=== PATIENT | male | born 1980 | race Caucasian/White ===

== ENCOUNTER 2017-10-23 10:19 | Emergency (ER) | payer MEDICARE ==
[2017-10-23 11:26] LABS: APPEARANCE CLEAR (CLEAR); COLOR YELLOW (YELLOW); GLUCOSE NEGATIVE (NEGATIVE); KETONE NEGATIVE (NEGATIVE); NITRITE NEGATIVE (NEGATIVE); PROTEIN 2+ mg/dL (NEGATIVE)
[2017-10-23 11:27] LABS: BILIRUBIN NEGATIVE (NEGATIVE)
[2017-10-23 11:28] LABS: BACTERIA MODERATE /hpf (NONE SEEN); EPITHELIAL CELLS 0-5 /hpf (0-5); MUCUS >1+ /lpf (NONE SEEN); RED CELLS - URINE 0-5 /hpf (0-5); WHITE CELLS - URINE 0-5 /hpf (0-5)
== END 2017-10-23 12:25 | disposition home or self-care (01) ==
LOC: D.ER 10:19
PROVIDERS: Nurse Practitioner Family
DX: R11.10 Vomiting, unspecified (principal); R19.7 Diarrhea, unspecified; N39.0 Urinary tract infection, site not specified; I10 Essential (primary) hypertension

== ENCOUNTER 2019-03-02 15:20 | Inpatient (IN) | payer MEDICARE ==
[~2019-03-02] VITALS: Ht 190.5 cm; Wt 71.8 kg
[2019-03-02] MEDS ORDERED: SEROQUEL100 MG PO (15:31)
[2019-03-02] MEDS ORDERED: KLONOPIN1 MG PO (15:32)
[2019-03-02] MEDS ORDERED: LISINOPRIL40 MG PO (15:32)
[2019-03-02] MEDS ORDERED: BUPROPION XL300 MG PO (15:32)
[2019-03-02] MEDS ORDERED: CELEXA40 MG PO (15:32)
[2019-03-02] MEDS ORDERED: NORVASC10 MG PO (15:33)
[2019-03-02 16:09] LABS: BASOPHILS 0.2 % (0-2); HEMATOCRIT 39.6 % (42.0-54.0); HEMOGLOBIN 13.1 g/dL (13.5-17.5); IMMATURE GRANULOCYTES 0.2 % (0-5); LYMPHOCYTES 16.7 % (15-50); MCH 29.8 pg (26.0-34.0); MCHC 33.1 g/dL (31.0-37.0); MEAN PLATELET VOLUME 10.3 fL (7.4-10.4); MONOCYTES 9.8 % (2-11); NEUTROPHILS 72.1 % (40-80); PLATELET COUNT 169 10x3/uL (130-400); RDW 15.5 % (11.5-14.5); WBC 5.8 10x3/uL (4.8-10.8)
[2019-03-02 16:16] LABS: APTT 31.9 SECONDS (22.8-39.4); INR 1.35 (0.85-1.17); PROTIME 16.1 SECONDS (11.6-15.0)
[2019-03-02 16:22] LABS: ALBUMIN 3.4 g/dL (3.4-5.0); ALKALINE PHOSPHATASE 117 U/L (46-116); ALT (SGPT) 42 U/L (10-68); BILIRUBIN - TOTAL 1.63 mg/dL (0.2-1.3); CALC OSMOLALITY 281 mosm/kg (275-300); CALCIUM 8.4 mg/dL (8.5-10.1); CARBON DIOXIDE 31.5 mmol/L (21.0-32.0); CHLORIDE - SERUM 104 mmol/L (98-107); GLUCOSE 100 mg/dL (74-106); POTASSIUM - SERUM 3.1 mmol/L (3.5-5.1); PROTEIN - SERUM 6.8 g/dL (6.4-8.2); SODIUM 142 mmol/L (136-145); UREA NITROGEN 11 mg/dL (7-18); eGFR NON AFRICAN AMERICAN 88 mL/min (90-120)
[2019-03-02 16:33] LABS: AMYLASE - SERUM 54 U/L (25-115); CKMB 1.4 U/L (0.0-3.6); CREATINE KINASE 95 UL (21-232); LIPASE 97 U/L (73-393); MAGNESIUM - SERUM 1.9 mg/dL (1.8-2.4); TROPONIN-I 0.032 ng/mL (0.000-0.060)
--- NOTE | 2019-03-02 18:27 | NUR ---
PATIENT ACTUAL WEIGHT IS 277LBS.
--- NOTE | 2019-03-02 19:08 | NUR ---
CALLED REPORT TO [facility]. ADVISED THAT ROOM IS READY FOR PATIENT WHEN WE CAN GET HIM TRANSPORTED.
--- NOTE | 2019-03-02 19:29 | NUR ---
PATIENT ARRIVED TO UNIT VIA STRETCHER. PATIENT IS ALERT AND ORIENTED. DOBUTAMINE DRIP INFUSING. RESPIRATIONS ARE EVEN AND UNLABORED NO S/S OF DISTRESS. NO C/O PAIN. CALL LIGHT WITHIN REACH. WILL CPOC.
[2019-03-02 20:00] VITALS: BP 163/90
[2019-03-02 20:01] VITALS: BP 163/90; Ht 190.5 cm; Wt 71.8 kg
[2019-03-03 04:00] VITALS: BP 164/88
--- NOTE | 2019-03-03 07:15 | NUR ---
RECIEVED PT IN BED AAOX4 RESP UNLABORED SKIN W/D COLOR WNL DENIES ANY NEEDS OR DISCOMFORT AT THIS TIME NAD NOTED
[2019-03-03 07:17] LABS: BASOPHILS 0.3 % (0-2); EOSINOPHILS 0.8 % (0-7); HEMATOCRIT 39.6 % (42.0-54.0); HEMOGLOBIN 13.1 g/dL (13.5-17.5); IMMATURE GRANULOCYTES 0.2 % (0-5); LYMPHOCYTES 13.7 % (15-50); MCH 29.8 pg (26.0-34.0); MCHC 33.1 g/dL (31.0-37.0); MCV 90.2 fL (80.0-100.0); MEAN PLATELET VOLUME 10.2 fL (7.4-10.4); MONOCYTES 13.8 % (2-11); NEUTROPHILS 71.2 % (40-80); PLATELET COUNT 166 10x3/uL (130-400); RBC 4.39 10x6/uL (4.20-6.10); RDW 15.8 % (11.5-14.5); WBC 6.4 10x3/uL (4.8-10.8)
[2019-03-03 07:32] LABS: ALBUMIN 3.4 g/dL (3.4-5.0); ALKALINE PHOSPHATASE 101 U/L (46-116); ALT (SGPT) 36 U/L (10-68); BILIRUBIN - TOTAL 2.31 mg/dL (0.2-1.3); CALC OSMOLALITY 285 mosm/kg (275-300); CALCIUM 8.6 mg/dL (8.5-10.1); CHLORIDE - SERUM 105 mmol/L (98-107); CKMB 1.5 U/L (0.0-3.6); CREATINE KINASE 86 UL (21-232); GLUCOSE 98 mg/dL (74-106); POTASSIUM - SERUM 3.1 mmol/L (3.5-5.1); PRO BNP 3108 pg/mL (0-125); PROTEIN - SERUM 6.5 g/dL (6.4-8.2); SODIUM 144 mmol/L (136-145); TROPONIN-I 0.058 ng/mL (0.000-0.060); UREA NITROGEN 9 mg/dL (7-18); eGFR NON AFRICAN AMERICAN 88 mL/min (90-120)
[2019-03-03 08:09] VITALS: BP 168/79
[2019-03-03 12:09] VITALS: BP 150/75
--- NOTE | 2019-03-03 13:38 | NUR ---
pt up ad kavya REFUSES SCDs
[2019-03-03 16:34] VITALS: BP 128/71
--- NOTE | 2019-03-03 19:35 | NUR ---
RESUMING PATIENT CARE. PT ALERT AND ORIENTED. TALKING ON CELL PHONE. RESPIRATIONS EVEN AND UNLABORED. REMAINS ON ROOM AIR. DOBUTAMINE DRIP DC PER ORDER. NO S/S OF DISTRESS NO C/O OF PAIN. CALL LIGHT IN REACH. WILL CPOC.
[2019-03-03 20:00] VITALS: BP 124/56
[2019-03-03 23:30] VITALS: BP 128/92
[2019-03-04 04:00] VITALS: BP 125/93
[2019-03-04 08:31] VITALS: BP 127/86
[2019-03-04] MEDS ORDERED: COREG12.5 MG PO (09:00)
--- NOTE | 2019-03-04 09:53 | NUR ---
IV AND TELEMETRY DCD. DC PLANS GIVEN. UNDERSTANDING VOICED.
--- NOTE | 2019-03-04 10:00 | EC ---
PATIENT:JOAN THEODORE DATE OF SERVICE: 03/02/19 SEX: M MEDICAL RECORD: [id number] DATE OF : [birth year] LOCATION:D.M2 D.211 AGE OF PATIENT: 38 ADMISSION DATE: 03/02/19 REFERRING PHYSICIAN: INTERPRETING PHYSICIAN: TOMAS BECK MD ECHOCARDIOGRAM REPORT ECHO CHARGES 4 ECHO COMPLETE Date: 03/03/19 CLINICAL DIAGNOSIS: CHF ECHOCARDIOGRAPHIC MEASUREMENTS (adult normal given) AC root (d.<3.7cm) 2.6 cm LV Septum d (<1.2 cm> 1.7 cm Valve Excursion 2.2 cm LV Septum (systole) 2.3 cm Left Atria (s.<4.0cm> 5.3 cm LVPW d(<1.2cm) 1.2 cm RV (d.<2.3cm) 2.7 cm LVPW (sytole) 1.7 cm LV diastole(<5.6CM) 3.8 cm MV E-F(>70mm/sec) cm LV systole 2.3 cm LVOT Diameter 1.9 cm MV exc.(>10mm) cm Est.ejection fraction (50-75%) % DOPPLER: LVIT cm/sec A 35 cm/sec E 87 cm/sec LA cm/sec RVSP 18.8 mmHg LVOT 144 cm/sec AOP1/2T m/s Asc. Ao 156 cm/sec RVOT 97 cm/sec RA cm/sec PA 113 cm/sec AV Gradient Peak 9.7 mmHg AV Mean 4.8 mmHg AV Area 3.1 cm MV Gradient Peak 4.3 mmHg MV Mean 1.7 mmHg MV Area cm COMMENTS: Tool And Die Supervisor: Bre [facility] Tariff Publishing Agent: 1 Dr. Beck TAPE# PACS Pericardial Effusion Y DATE OF SERVICE: FINDINGS: 1. Left ventricular chamber size is within normal limits. Left ventricular systolic function is normal. Overall ejection fraction is estimated at 55%. 2. Left atrium, right atrium, and right ventricular chamber sizes are dilated. Left atrium measures 5.3 cm. 3. Valvular structures have normal structure and motion. 4. Doppler interrogation reveals mild mitral regurgitation. No other valvular insufficiency or stenosis. ECHOCARDIOGRAM REPORT [id number] JOAN THEODORE 5. Left ventricular hypertrophy is present and concentric with no evidence of outflow tract hypertrophy. 6. There is a moderate pericardial effusion present. No evidence of right atrial or right ventricular collapse. TRANSINT:[id number] Voice Confirmation ID: [id number] DOCUMENT ID: [id number] TOMAS BECK MD at 1000 CC: [id number] DICTATION DATE: 03/03/19 1129 [facility] ADMINISTRATOR: 03/03/[address] [facility] [address] [id number]
--- NOTE | 2019-03-04 10:00 | HP ---
PATIENT: JOAN THEODORE MEDICAL RECORD: [id number] ACCOUNT: [id number] LOCATION:[address] : [birth year] ADMISSION DATE: 03/02/19 PCP: MILAGROS PHAM MD HISTORY AND PHYSICAL EXAMINATION ADMITTING DIAGNOSES: 1. Congestive heart failure, chronic systolic dysfunction. 2. Cardiomyopathy, nonischemic. 3. Hypertension. HISTORY OF PRESENT ILLNESS: Mr. Theodore presents with shortness of breath, fluid overload, and class III heart failure symptomatology. He does have a history of a nonischemic cardiomyopathy diagnosed approximately 5 years ago. CURRENT MEDICATIONS: Include lisinopril, amlodipine. He is not on a beta-puneet. PHYSICAL EXAMINATION: GENERAL APPEARANCE: Well-nourished, well-developed, appears stated age. Level of distress, comfortable. PSYCHIATRIC: Mental status, alert, normal affect. Orientation, oriented to time, place and person. EYES: Lids and conjunctiva, noninjected. No discharge, no pallor. ENT: Lips, teeth, gums, normal dentition. Oropharynx, no cyanosis, no pallor. NECK: Carotid arteries, bilateral normal upstroke, no bruits, no thrills. JUGULAR VEINS: No jugular venous pressure or distention. CERVICAL LYMPH NODES: Nontender, nonenlarged. THYROID: Not enlarged. Nontender. No nodules. LUNGS: Respiratory effort, unlabored. CHEST: Normal curvature. No thoracic deformity. No chest wall tenderness. Percussion, resonant. Auscultation, clear. No wheezes, no rales, no rhonchi. CARDIOVASCULAR: Precordial exam, nondisplaced. No heaves or pericardial thrills. Rate and rhythm, regular. Heart sounds, normal S1, normal S2. No S3, no gallop, no rub. Systolic murmur, not heard. Diastolic murmur, not heard. EXTREMITIES: No cyanosis, no edema. Peripheral pulses, full and equal in all extremities, except as noted. No bruits appreciated. ABDOMEN: Soft, nondistended. Normal aorta. No bruit. Nontender. No masses. Liver, nontender, no hepatomegaly. Spleen, nontender, no splenomegaly. MUSCULOSKELETAL: No joint tenderness. No joint swelling. No erythema. NEUROLOGICAL: Normal gait, normal strength, normal tone. SKIN: Warm and dry. OVERALL IMPRESSION: Congestive heart failure at this time, he is on dobutamine and Lasix. We will add Coreg to his medical regimen. He has had a good diuresis. His breathing is still not back to baseline. We will continue these until the breathing is at baseline and he has a complete diuresis and clearing of his heart failure symptomatology. TRANSINT:[id number] Voice Confirmation ID: [id number] DOCUMENT ID: [id number] HISTORY AND PHYSICAL [id number] JOAN THEODORE JEFFREY MD at 1000 CC: [id number] DICTATION DATE: 03/03/19904 CIGARETTE PACKER: 03/03/19 0954 ADM IN [id number] [place] [address]
--- NOTE | 2019-03-04 10:26 | NUR ---
ESCORTED TO CAR BY W/C.
--- NOTE | 2019-03-04 11:31 | MORECARE ---
CASE MANAGEMENT DISCHARGE SUMMARY PATIENT: JOAN THEODORE UNIT: [id number] ADM DATE: 03/02/19 AGE: 38 : [birth year] SEX: M ROOM/BED: D.2114 AUTHOR: NAKUL,DOC PHYSICIAN: REFERRING PHYSICIAN: TOMAS HORTA MD DATE OF SERVICE: 03/04/19 Discharge Plan Patient Name: JOAN THEODORE Facility: [facility]:[place] : 1980 Planned Disposition: Home Anticipated Discharge Date: 03/04/19 Discharge Date: 03/04/2019 Expected LOS: 2 Initial Reviewer: [email or web address] Initial Review Date: 03/04/2019 Generated: 03/04/19 12:30 pm Comments DCP- Discharge Planning Updated by [email or web address]: Binh Murrieta on 03/04/19 10:[address] Patient Name: JOAN THEODORE Admission Status: ER Accout number: [id number] Admission Date: 03-02-2019 : 1980 Admission Diagnosis: Attending: SHREE HORTA Current LOS: 2 Anticipated DC Date: 03-04-2019 Planned Disposition: Home Primary Insurance: MEDICARE A & B Discharge Planning Comments: CM MET WITH PT IN ROOM TO DISCUSS DISCHARGE PLANNING AND NEEDS. PT REPORTS LIVING AT HOME INDEPENDENTLY AND ALONE. PT HAS NO MEDICAL EQUIPMENT AND NO OUTSIDE SERVICES ASSISTING IN THE HOME. CM DISCUSSED AVAILABILITY OF HOME HEALTH, REHAB SERVICES AND MEDICAL EQUIPMENT. PT DENIES DISCHARGE NEEDS, REPORTS HE IS DRIVING SELF HOME AT DISCHARGE TODAY. LICENSE DISTRIBUTOR NURSE NOTIFIED. Hand Coke Drawer: Binh Murrieta DCPIA - Discharge Planning Initial Assessment Updated by [email or web address]: Binh Murrieta on 03/04/19 11:26 am * Is the patient Alert and Oriented? Yes * How many steps to enter\exit or inside your home? 15 * PCP DR. PHAM * Pharm[facility] * Preadmission Environment Home Alone * ADLs Independent * Equipment None * Other Equipment [facility] - MEDICAL EQUIPMENT PROVIDER * List name and contact numbers for known caregivers / representatives who currently or will assist patient after discharge: BHAVINMOI, MICHAELT, * Verbal permission to speak to the caregivers and representatives has been obtained from the patient. N/A * Community resources currently utilized None * Please name any agencies selected above. NONE * Additional services required to return to the preadmission environment? No * Can the patient safely return to the preadmission environment? Yes * Has this patient been hospitalized within the prior 30 days at any hospital? No Patient Name: JOAN THEODORE Page [id number] at 1131 All edits/amendments must be made on the electronic document DICTATION DATE: 03/04/191129 SIDER MECHANIC: JESSICA 03/04/19 1130 RPT#: [id number] DC DATE:03/04/19 STATUS: DIS IN [facility] [address] [place] [address] END OF REPORT
== END 2019-03-04 10:27 | disposition home or self-care (01) | DRG 293 ==
LOC: D.ER 15:20 → D.M2 18:53
PROVIDERS: Family Medicine; ADMIT Internal Medicine Interventional Cardiology; ATTEND Internal Medicine Interventional Cardiology
DX: I11.0 Hypertensive heart disease with heart failure (principal); I50.22 Chronic systolic (congestive) heart failure; I42.9 Cardiomyopathy, unspecified

== ENCOUNTER 2019-06-06 18:47 | Inpatient (IN) | payer MEDICARE ==
[~2019-06-06] VITALS: Ht 190.5 cm; Wt 122.7 kg
--- NOTE | ~2019-06-06 | HEMODYNAMI ---
PATIENT:JOAN THEODORE MEDICAL RECORD: [id number] : [birth year] [facility] ADMISSION DATE: 06/06/19 Generatedon:06/08/201911:21 Patient name: JOAN THEODORE Patient #: [id number] SSN: [id number] : 1980 Date of study: 06/08/2019 Page: Of Hemodynamic Procedure Report Patient Data Patient Demographics Procedure consent was obtained First Name: JOAN Gender: Male Last Name: ARBEN : 1980 Middle Initial: MARAH Age: 39 year(s) Patient #: [id number] Race: SSN: [id number] Additional ID: [id number] Contact details Address: [address] [place] [address] State: [place] City: [facility] Zip code: [address] Past Medical History Allergies Allergen Reaction Date Comments Reported Other allergy 06/08/2019 asprin/penicillins Admission Admission Data Admission Date: 06/06/2019 Admission Time: 20:43 Room #: D.2120 Procedure Procedure Types Cath Procedure Diagnostic Procedure [facility] w/Coronaries Sedation Charges Moderate Sedation up to 15 minutes Procedure Description Procedure Date Procedure Date: 06/08/2019 Procedure Start Time: 11:05 Procedure End Time: 11:16 Procedure Staff Name Function Wilner Beck MD Performing Physician Elli Rehman RT Monitor Lisbeth Isaac RT Monitor Omar Rowan RN Nurse Aubree Cota RT Scrub Indication Unstable angina Procedure Data Cath Procedure Fluoroscopy Diagnostic fluoroscopy Total fluoroscopy Time: 2.3 time: 2.3 min min Diagnostic fluoroscopy Total fluoroscopy dose: dose: 1193 mGy 1193 mGy Contrast Material Contrast Material Type Amount (ml) Isovue 300 77 Entry Location Entry Primary Successful Side Size Upsize Upsize Entry Closure Plascencia ccessful Closure Location (Fr) 1 (Fr) 2 (Fr) Remarks Device Remarks Radial Right 6 Fr Mechanical artery Short Compression Estimated blood loss: 5 ml Diagnostic catheters Device Type Used For End Catheter Placement DIAGNOSTIC Dierks 110cm 5 Multi-vessel Fr catheter ([id number]) Angiography DIAGNOSTIC AR2 MOD 5 Fr Right Coronary catheter ([id number]) Angiography Procedure Complications No complications Procedure Medications Medication Administration Route Dosage 0.9% NaCl I.V. 100 ml/hr Oxygen etCO2 Nasal cannula 2 l/min Heparin Flush Bag added to field 2 bags (1000units/500ml NS) Lidocaine 2% added to field 20 Radial Cocktail added to field 1 syringe (Verapamil 2mg/Nitro 400mcg/Heparin 1500units) Versed I.V. 2 mg Fentanyl I.V. 100 mcg Radial Cocktail I.A. 1 syringe (Verapamil 2mg/Nitro 400mcg/Heparin 1500units) Hemodynamics Rest Heart Rate: 61 (bpm) Pressure Samples Time Site Value (mmHg) Purpose Heart Use Rate(bpm) 11:07 LV 28/-16,-8 Snapshot 93 11:07 LV 50/14,14 Snapshot 76 Snapshots Pre Cath Intra NCS Post Cath Vital Signs Time Heart Resp SPO2 etCO2 NIBP (mmHg) Rhythm Pain Sedation Rate (ipm) (%) (mmHg) Status Level (bpm) 11:02:36 63 19 99 34.6 128/98(105) NSR 0 (11) 10(A) , No pain 11:07:17 63 18 97 36.1 119/87(114) NSR 0 (11) 10(A) , No pain 11:11:22 60 17 92 43.6 121/82(100) NSR 0 (11) 9(A) , No pain 11:15:28 60 11 94 43.7 114/85(97) NSR 0 (11) 9(A) , No pain Medications Time Medication Route Dose Verified Delivered Reason Notes Effectiveness by by 11:00:43 0.9% NaCl I.V. 100 Omar Omar Per ml/hr Harpal Rowan physician RN RN 11:00:54 Oxygen etCO2 2 l/min Omar Omar for low 02 Nasal Harpal Rowan sats cannula RN RN 11:01:08 Heparin Flush added 2 bags Omar Omar used for Bag to Harpal oRwan procedure (1000units/500ml field RN RN NS) 11:01:19 Lidocaine 2% added 20ml Omar Omar for local to vial Lorigan Lorigan anesthetic field RN RN 11:01:30 Radial Cocktail added 1 Omar Omar used for (Verapamil to syringe Harpal Rowan procedure 2mg/Nitro field RN RN 400mcg/Heparin 1500units) 11:05:19 Versed I.V. 2 mg Omar Omar for sedation Harpal Rowan RN, RN 11:05:27 Fentanyl I.V. 100 mcg Omar Nelson for sedation Harpal Rowan RN RN 11:07:25 Radial Cocktail I.A. 1 Omar Darby for (Verapamil syringe Harpal Beck MD vasodilation 2mg/Nitro RN 400mcg/Heparin 1500units) Procedure Log Time Note 10:45:46 Elli Rehman RT(R) sent for patient. Start room use. 10:56:36 Informed consent obtained and on chart 10:59:35 Diagnostic Cath Status : Urgent 11:00:30 Indication : Unstable angina 11:00:43 0.9% NaCl 100 ml/hr I.V. was administered by Omar Rowan RN; Per physician; Verbal order read back and verified. 11:00:54 Oxygen 2 l/min etCO2 Nasal cannula was administered by Omar Rowan RN; for low 02 sats; Verbal order read back and verified. 11:01:08 Heparin Flush Bag (1000units/500ml NS) 2 bags added to field was administered by Omar Rowan RN; used for procedure; Verbal order read back and verified. 11:01:10 Time tracking: Regular hours (M-F 7:00 - 5:00) 11:01:18 Plan of Care:Hemodynamics will remain stable., Cardiac rhythm will remain stable., Comfort level will be maintained., Respiratory function will remain adequate., Patient/ family verbilizes understanding of procedure., Procedure tolerated without complication., Recovers from procedure without complications.. 11:01:19 Lidocaine 2% 20ml vial added to field was administered by Omar Rowan RN; for local anesthetic; Verbal order read back and verified. 11:01:26 Patient received from Med II to [facility] 2 Alert and oriented. Tansferred to table in Supine position. 11:01:29 Warm blankets applied, and bishop hugger turned on for patient comfort. 11:01:30 Radial Cocktail (Verapamil 2mg/Nitro 400mcg/Heparin 1500units) 1 syringe added to field was administered by Omar Rowan RN; used for procedure; Verbal order read back and verified. 11:01:30 Correct patient and procedure confirmed by team. 11:01:31 ECG and BP/O2 sat monitors applied to patient. 11:01:32 Vital chart was started 11:01:37 Baseline sample Acquired. 11:01:41 Full Disclosure recording started 11:01:46 Rhythm: sinus rhythm 11:01:58 H&P Date Dictated: 06/08/2019 New H&P dictated by physician.. 11:02:00 Pre-procedure instructions explained to patient. 11:02:02 Pre-op teaching completed and patient verbalized understanding. 11:02:10 Family unavailable. 11:02:14 Patient NPO since Midnight. 11:02:59 Patient allergic to Other allergyasprin/penicillins 11:03:06 Is the patient allergic to Iodine/contrast media? No. 11:03:09 Was the patient premedicated? No 11:03:25 Is patient on blood thinner?Yes 11:03:43 Preloaded on plavix 11:03:52 Patient diabetic? No. 11:03:56 ----Pre-sedation anethsthesia assessment.---- 11:04:01 Previous problem with sedation/anesthesia? No ? 11:04:04 Snore? No 11:04:06 Sleep apnea? No 11:04:08 Deviated septum? No 11:04:10 Opens mouth fully? Yes 11:04:12 Sticks out tongue? Yes 11:04:16 Airway obstruction? No ? 11:04:22 Dentures? No ? 11:04:34 Pre procedure: right dorsailis pedis pulse 2+ Normal; easily identifiable; not easily obliterated 11:04:36 Pre procedure: left dorsailis pedis pulse 2+ Normal; easily identifiable; not easily obliterated 11:04:41 IV patent on arrival in left forearm with 0.9% NaCl at O. 11:04:43 Lab results completed and on chart. 11:04:46 Right Radial & Right Groin area was prepped with chlora-prep and draped in sterile fashion 11:04:47 Alarms reviewed by R. N. 11:04:47 Sharps counted by scrub and verified by R.N. 11:04:49 Physician arrived 11:04:49 --------ALL STOP TIME OUT------ 11:04:50 Final Timeout: patient, procedure, and site verified with staff and physician. All members of the team are in agreement. 11:04:52 Right Radial & Right Groin site verified by team. 11:04:55 Fire Safety Assessment: A--An alcohol-based skin anteseptic being used preoperatively., C--Open oxygen or nitrous oxide is being used., D--An ESU, laser, or fiber-optic light is being used. 11:04:58 Physical assessment completed. ASA score P 2 - A patient with mild systemic disease as per Wilner Beck MD. 11:05:04 Sedation plan: IV Moderate Sedation Medication:Versed, Fentanyl 11:05:14 2) 60-89 Mildly reduced kidney function, and other findings (as for stage 1) point to kidney disease. 11:05:19 Versed 2 mg I.V. was administered by Omar Rowan RN; for sedation; Verbal order read back and verified. 11:05:27 Fentanyl 100 mcg I.V. was administered by Omar Rowan RN; for sedation; Verbal order read back and verified. 11:05:31 Maximum allowable contrast dose (3.7 X eGFR X 0.75)166 ml. 11:05:35 Use device set Radial Dx or PCI 11:05:36 ACIST Syringe (71028) opened to sterile field. 11:05:36 Medline Cath Pack ([id number]) opened to sterile field. 11:05:36 Bag Decanter () opened to sterile field. 11:05:37 ACIST Hand Control (17092) opened to sterile field. 11:05:37 ACIST Manifold (32102) opened to sterile field. 11:05:38 Tegaderm 4 x 4 (1626W) opened to sterile field. 11:05:38 MBrace Wrist Support ([id number]) opened to sterile field. 11:05:39 EMERALD Guide Wire (836-959) opened to sterile field. 11:05:40 SHEATH 6FR RAIN (4647014) opened to sterile field. 11:05:43 Procedure started. 11:05:47 Local anesthetic to right radial artery with Lidocaine 2% by Wilner Beck MD.INITIAL ACCESS ONLY 11:06:01 A 6 Fr Short sheath was inserted into the Right Radial artery 11:06:18 A DIAGNOSTIC Dierks 110cm 5 Fr catheter (205816) was advanced over the wire and used for Multi-vessel Angiography. 11:06:57 Zero performed for pressure channel P1 11:07:25 Radial Cocktail (Verapamil 2mg/Nitro 400mcg/Heparin 1500units) 1 syringe I.A. was administered by Wilner Beck MD; for vasodilation; Verbal order read back and verified. 11:07:47 LV hemodynamics recorded. 11:07:50 LV gram done using GORDON 11:07:58 Injector settings: Ml/sec: 5, Volume: 15, 11:08:10 EF : 50 % 11:08:16 LCA angiography performed. 11:10:58 Catheter removed. 11:11:19 A DIAGNOSTIC AR2 MOD 5 Fr catheter ([id number]) was advanced over the wire and used for Right Coronary Angiography. 11:12:43 RCA angiography performed. 11:12:48 Catheter removed. 11:12:50 ACCDominant side:Right 11:13:06 ZEPHYR REGULAR TR BAND (362936) opened to sterile field. 11:13:40 Sheath removed intact; hemostasis achieved with Mechanical Compression to the Right Radial artery. 11:13:44 Procedure ended.(Physican Out) 11:14:01 Fluoroscopy time 02.30 minutes. 11:14:09 Flurop Dose total: 1193 11:14:09 Fluoroscopy dose: 1193 mGy 11:14:14 Dose Area Product 71783 mGy/cm. 11:14:21 Contrast amount:Isovue 300 77ml. 11:14:33 Sharps counted by scrub and verified by R.N. 11:14:40 [place] band inflated with 10cc of air. 11:14:42 Insertion/operative site no bleeding no hematoma. 11:14:52 Post right radial artery:stable 11:14:57 Post Procedure Pulses reassessed and unchanged 11:15:06 Post procedure rhythm: unchanged. 11:15:13 Estimated blood loss: 5 ml 11:15:18 Post procedure instruction explained to patient.Patient verbalizes understanding. 11:15:18 Patient needs reinforcement of post procedure teaching. 11:15:57 Procedure type changed to Cath procedure, Diagnostic procedure, LHC, LHC w/Coronaries, Sedation Charges, Moderate Sedation up to 15 minutes 11:16:01 Procedure and supply charges have been captured, reviewed, submitted and are correct. 11:16:14 Procedure Complication : No complications 11:16:33 Vital chart was stopped 11:16:34 See physician's report for complete and final results. 11:16:44 Report given to Pre/Post Procedure Room. 11:16:53 Patient transfered to Pre/Post Procedure Room with Bed. 11:16:57 Procedure ended. 11:16:57 Full Disclosure recording stopped 11:17:08 End room use (Document Last) Device Usage Item Name Manufacture Quantity Catalog Hospital Part Current Minima l Lot# / Number Charge Number Stock Stock Serial# Code ACIST Acist 1 46558 [id number] 360970 [id number] 20 Syringe Medical (94330) Systems Inc Medline Medline 1 [id number] 899725 37432 505431 5 Cath Pack ([id number]) Bag Microtek 1 2001S 964890 48465 841309 5 Decanter Medical Inc. () ACIST Hand Acist 1 26315 514042 087369 060809 5 Control Medical (69299) Systems Inc ACIST Acist 1 56636 567790 148812 725785 5 Manifold Medical (41266) Systems Inc Tegaderm 4 3M 1 1626W 478268 207657 594034 5 x 4 (1626W) MBrace Advanced 1 140-0250-00 884650 99905 869816 5 Wrist Vascular Support Dynamics ([id number]) EMERALD Cardinal 1 502-455 798671 576853 361961 5 Guide Wire Health (502-455) SHEATH 6FR Cardinal 1 4359725 902152 3073846 935525 5 [facility] (8608209) DIAGNOSTIC Terumo 1 40-5013 723962 640271 671453 5 Dierks 110cm 5 Fr catheter (044458) DIAGNOSTIC Cardinal 1 952147M 093551 408925 075408 20 AR2 MOD 5 Health Fr catheter (870442O) ZEPHYR Cardinal 1 912518 651464 2061362 559846 5 REGULAR TR Health BAND (040017) Signature Audit Blanchard Stage Time Signature Unsigned Intra-Procedure 06/08/2019 Lisbeth 11:20:27 AM Poncho RT(R) (CV) Intra-Procedure 06/08/2019 Omar 11:21:05 AM Harpal FAROOQ Intra-Procedure 06/08/2019 Wilner Beck 11:21:51 AM [facility] [address] [place] [address]
[~2019-06-06 18:47] MED LIST: BUPROPION XL300 MG PO; CELEXA40 MG PO; COREG12.5 MG PO; KLONOPIN1 MG PO; LISINOPRIL40 MG PO; NORVASC10 MG PO; SEROQUEL100 MG PO
[2019-06-06] MEDS ORDERED: KLOR-CON 1010 MEQ (19:09)
[2019-06-06 19:30] VITALS: BP 132/98
[2019-06-06 19:53] LABS: BASOPHILS 0.2 % (0-2); EOSINOPHILS 0.2 % (0-7); HEMATOCRIT 40.2 % (42.0-54.0); HEMOGLOBIN 13.2 g/dL (13.5-17.5); IMMATURE GRANULOCYTES 0.1 % (0-5); LYMPHOCYTES 11.4 % (15-50); MCH 28.1 pg (26.0-34.0); MCHC 32.8 g/dL (31.0-37.0); MCV 85.7 fL (80.0-100.0); MEAN PLATELET VOLUME 10.2 fL (7.4-10.4); MONOCYTES 11.7 % (2-11); NEUTROPHILS 76.4 % (40-80); PLATELET COUNT 176 10x3/uL (130-400); RBC 4.69 10x6/uL (4.20-6.10); WBC 9.6 10x3/uL (4.8-10.8)
[2019-06-06 19:57] LABS: APTT 32.3 SECONDS (22.8-39.4); INR 1.41 (0.85-1.17); PROTIME 16.6 SECONDS (11.6-15.0)
[2019-06-06 20:00] VITALS: BP 149/101
[2019-06-06 20:03] LABS: ALBUMIN 3.8 g/dL (3.4-5.0); ALKALINE PHOSPHATASE 113 U/L (46-116); ALT (SGPT) 31 U/L (10-68); BILIRUBIN - TOTAL 2.07 mg/dL (0.2-1.3); CALC OSMOLALITY 285 mosm/kg (275-300); CALCIUM 8.9 mg/dL (8.5-10.1); CARBON DIOXIDE 28.3 mmol/L (21.0-32.0); CHLORIDE - SERUM 105 mmol/L (98-107); CREATININE - SERUM 1.4 mg/dL (0.6-1.3); GLUCOSE 100 mg/dL (74-106); POTASSIUM - SERUM 3.4 mmol/L (3.5-5.1); SODIUM 143 mmol/L (136-145); UREA NITROGEN 16 mg/dL (7-18); eGFR NON AFRICAN AMERICAN 60 mL/min (90-120)
[2019-06-06 20:18] LABS: CKMB 2.9 U/L (0.0-3.6); CREATINE KINASE 133 UL (21-232); MAGNESIUM - SERUM 1.7 mg/dL (1.8-2.4)
[2019-06-06 20:19] LABS: TROPONIN-I 0.165 ng/mL (0.000-0.060)
[2019-06-06 20:30] VITALS: BP 156/97
[2019-06-06 21:00] VITALS: BP 159/107
--- NOTE | 2019-06-06 21:45 | NUR ---
PT RECEIVED FROM ER, A&OX4, 20G.-LAC-NS @50, 2L-02, TELEMTRY-90SR, PROVIDED A SANDWICH AND DRINK, WILL KEEP NPO AFTER MIDNIGHT, DENIES ANY NEEDS AT THIS TIME, BED IS LOW, SRX2, CALL LIGHT IN REACH, WILL CONTINUE PLAN OF CARE
[2019-06-07] VITALS (7 sets, daily range): BP systolic 128–167; BP diastolic 86–107; Ht 190.5 cm; Wt 122.7 kg
[2019-06-07 05:52] LABS: BASOPHILS 0.3 % (0-2); EOSINOPHILS 1.4 % (0-7); HEMOGLOBIN 12.5 g/dL (13.5-17.5); IMMATURE GRANULOCYTES 0.2 % (0-5); LYMPHOCYTES 26.8 % (15-50); MCH 27.5 pg (26.0-34.0); MCHC 31.3 g/dL (31.0-37.0); MEAN PLATELET VOLUME 10.5 fL (7.4-10.4); MONOCYTES 13.4 % (2-11); NEUTROPHILS 57.9 % (40-80); PLATELET COUNT 180 10x3/uL (130-400); RBC 4.55 10x6/uL (4.20-6.10); RDW 15.3 % (11.5-14.5)
[2019-06-07 05:55] LABS: WBC 6.4 10x3/uL (4.8-10.8)
[2019-06-07 05:56] LABS: MCV 87.9 fL (80.0-100.0)
[2019-06-07 06:07] LABS: ANION GAP 11.4 mmol/L (8-16); CALCIUM 8.7 mg/dL (8.5-10.1); CREATININE - SERUM 1.2 mg/dL (0.6-1.3); POTASSIUM - SERUM 3.4 mmol/L (3.5-5.1)
--- NOTE | 2019-06-07 11:45 | NUR ---
TELEMETRY SR. DR HORTA AT BS. WILL CONT. TO MONITOR NEEDS.
--- NOTE | 2019-06-07 12:58 | NUR ---
CONSENTS SIGNED FOR [facility]. WILL CONT. PLAN OF CARE.
--- NOTE | 2019-06-07 19:00 | NUR ---
RECEIVED REPORT, WILL ASSUME CARE OF PT, SLEEPING NO DISTRESS NOTICED, BED IS LOW, SRX2, CALL LIGHT IN REACH, WILL CONTINUE PLAN OF CARE
[2019-06-08] VITALS: BP 101/64
[2019-06-08 04:00] VITALS: BP 128/90
--- NOTE | 2019-06-08 05:55 | NUR ---
I have reviewed this patient and I concur with the Shift Assessment completed by the Licensed Practical Nurse today this shift.
--- NOTE | 2019-06-08 07:11 | NUR ---
AWAKE AND ALERT. DENIES ANY NEEDS. TELEMERTY SHOWS SB 58. 02 AT 2 L/M PER NC. LEFT AC IV. NPO FOR CATH. WILL MONITOR. SR UP WITH CALL LIGHT IN REACH
[2019-06-08 08:02] VITALS: BP 141/98
--- NOTE | 2019-06-08 11:29 | HP ---
PATIENT: JOAN THEODORE MEDICAL RECORD: [id number] ACCOUNT: [id number] LOCATION:[address] : 78 ADMISSION DATE: 06/06/19 PCP: MILAGROS PHAM MD HISTORY AND PHYSICAL EXAMINATION DIAGNOSES: 1. Non-Q-wave myocardial infarction. 2. Angina. 3. Cardiomyopathy. 4. Abnormal ECG. 5. Hypertension. HISTORY OF PRESENT ILLNESS: Mr. Theodore presents with severe chest pain and increased troponin. His chest pain came on him when he was at work. He usually does not get chest pain. He was diagnosed with a nonischemic cardiomyopathy 6-7 years ago. He had cardiac catheterization at that time with no significant disease. He has not been restudied since. He is not having any chest pain now. His EKG suggests lateral ischemia. PHYSICAL EXAMINATION: CONSTITUTIONAL/GENERAL APPEARANCE: Well nourished, well developed, appears stated age. EYES: Lids and conjunctivae noninjected. No discharge. No pallor. ENT: Lips within normal limit. No cyanosis. No pallor. NECK: Carotid arteries, bilateral normal upstroke. No bruits. No thrills. No jugular venous pressure or distention. CERVICAL LYMPH NODES: Nontender. Nonenlarged. THYROID: Not enlarged. No nodules. CARDIOVASCULAR: Precordial exam, nondisplaced. No heaves or pericardial thrills. Rate and rhythm, regular. Heart sounds, normal S1, normal S2. No S3, no gallop, no rub. Systolic murmur, not heard. Diastolic murmur, not heard. RESPIRATORY: Respiratory effort, unlabored. Normal curvature. No thoracic deformity. No chest wall tenderness. Percussion, resonant. Auscultation, clear. No wheezes, no rales, no rhonchi. ABDOMEN: Soft, nondistended, nontender. No abdominal pain, no vomiting and normal appetite. MUSCULOSKELETAL: No joint tenderness, normal gait, normal tone. SKIN: Warm and dry. OVERALL IMPRESSION: Non-Q-wave myocardial infarction with new-onset chest pain and abnormal ECG. You know, he had a negative cardiac catheterization 6-7 years ago. With his change in status, change in symptomatology, EKG abnormalities, and elevated troponin, we will proceed with coronary angiography in the a.m. Further care depends upon findings of the angiography. TRANSINT:[id number] Voice Confirmation ID: [id number] DOCUMENT ID: [id number] HISTORY AND PHYSICAL [id number] JOAN THEODORE JEFFREY MD at 1129 CC: [id number] DICTATION DATE: 06/07/19 1152 CANDY ATTENDANT: 06/07/19 1212 ADM IN [facility] [address] [id number]
--- NOTE | 2019-06-08 11:30 | NUR ---
PT ARRIVED BY STRETCHER. PLACED ON MONITOR. ASSESSMENT COMPLETED. CALL LIGHT WITHIN REACH. NO FAMILY WITH PT AT THIS TIME.
--- NOTE | 2019-06-08 11:45 | NUR ---
PT RESTING COMFORTABLY. RIGHT RADIAL Z BAND IN PLACE. NO BLEEDING/HEMATOMA NOTED.
--- NOTE | 2019-06-08 12:17 | NUR ---
PT RESTING COMFORTABLY. VSS. RIGHT RADIAL Z BAND IN PLACE. NO BLEEDING/HEMATOMA NOTED. CALL LIGHT WITHIN REACH.
--- NOTE | 2019-06-08 12:45 | NUR ---
4cc OF AIR REMOVED FROM Z BAND. TOLERATED WELL. PT STILL SLEEPY, BUT HEAD OF BED INC TO 45 DEGREES AND PT SET UP WITH SANDWICH TRAY AND DRRINK. NO BLEEDING NOTED TO RIGHT WRIST AT THIS TIME. CALL LIGHT WITHIN REACH. DENIES NAUSEA/PAIN.
--- NOTE | 2019-06-08 13:00 | NUR ---
4cc OF AIR REMOVED FROM Z BAND. TOLERATED WELL. NO BLEEDING/HEMATOMA NOTED. CALL LIGHT WITHIN REACH.
--- NOTE | 2019-06-08 13:20 | NUR ---
4cc OF AIR REMOVED FROM Z BAND. TOLERATED WELL. NO BLEEDING/HEMATOMA NOTED. CALL LIGHT WITHIN REACH. PT HAS NO RIDE HOME AT THIS TIME. HE IS CALLING AROUND AND SEEING IF SOMEONE CAN PICK HIM UP.
--- NOTE | 2019-06-08 14:00 | NUR ---
Z BAND REMOVED AND DRESSING APPLIED. NO BLEEDING/HEMATOMA NOTED. CALL LIGHT WITHIN REACH. VSS. NO NEEDS AT THIS TIME.
--- NOTE | 2019-06-08 14:12 | NUR ---
PT FOUND RIDE HOME. PIV D/C'D WITH CATH TIP INTACT. RIGHT WRIST DRESSING C/D/I. NO S/S OF HEMATOMA NOTED. PT INSTRUCTED TO GET UP AND DRESSED.
--- NOTE | 2019-06-08 14:15 | NUR ---
DISCUSSED DISCHARGE INSTRUCTIONS WITH PT. HE VOICED UNDERSTANDING. WILL FOLLOW UP WITH DR. GODOY OFFICE IN 3 WEEKS. APPT DATE AND TIME GIVEN AND CARD GIVEN WITH OFFICE NUMBER AND ADDRESS.
--- NOTE | 2019-06-08 14:30 | NUR ---
PT AMBULATED TO RESTROOM. VOIDED WITHOUT DIFFICULTY.
--- NOTE | 2019-06-08 14:34 | OP ---
PATIENT NAME: JOAN THEODORE MEDICAL RECORD: [id number] :78 LOCATION:[address] [address] ADMISSION DATE:06/06/19 SURGEON: TOMAS HORTA MD DATE OF OPERATION: 06/08/2019 PROCEDURES: 1. Left heart catheterization. 2. Selective coronary angiography. 3. Left ventriculogram. INDICATION: Non-Q-wave myocardial infarction. DESCRIPTION OF PROCEDURE: After informed consent was obtained and after detailed explanation of risks, benefits as well as alternative therapies, the patient elected to proceed with angiogram and heart catheterization. FINDINGS: Left ventriculogram was performed in standard 30-degree GORDON view, reveals preserved cardiac wall motion, ejection fraction 55% to 60%. SELECTIVE CORONARY ANGIOGRAPHY: 1. Left main is with no significant angiographic disease. 2. Left anterior descending has no significant disease, but there is very prominent systolic bridging throughout the entire [id number] LAD. 3. Left circumflex has no significant angiographic disease. 4. Right coronary has no significant angiographic disease. 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 No fixed obstructive disease and preserved left ventricular function. TRANSINT:[id number] Voice Confirmation ID: [id number] DOCUMENT ID: [id number] TOMAS HORTA MD at 1434 CC: [id number] DICTATION DATE: 06/08/19 1134 SAP SOLUTION MANAGER CONSULTANT: 06/08/19 1303 ADM IN [facility] [address] [place] [address]
--- NOTE | 2019-06-08 14:34 | EC ---
PATIENT:JOAN THEODORE DATE OF SERVICE: 06/06/19 SEX: M MEDICAL RECORD: [id number] DATE OF : 78 [facility] AGE OF PATIENT: 39 ADMISSION DATE: 06/06/19 REFERRING PHYSICIAN: INTERPRETING PHYSICIAN: TOMAS BECK MD ECHOCARDIOGRAM REPORT ECHO CHARGES 4 ECHO COMPLETE Date: 06/07/19 CLINICAL DIAGNOSIS: TN, SOB ECHOCARDIOGRAPHIC MEASUREMENTS (adult normal given) AC root (d.<3.7cm) 2.7 cm LV Septum d (<1.2 cm> 1.9 cm Valve Excursion 2.1 cm LV Septum (systole) 2.0 cm Left Atria (s.<4.0cm> 4.3 cm LVPW d(<1.2cm) 1.6 cm RV (d.<2.3cm) 2.7 cm LVPW (sytole) 2.2 cm LV diastole(<5.6CM) 4.7 cm MV E-F(>70mm/sec) cm LV systole 3.4 cm LVOT Diameter 1.9 cm MV exc.(>10mm) cm Est.ejection fraction (50-75%) % DOPPLER: LVIT cm/sec A 45 cm/sec E 60 cm/sec LA cm/sec RVSP 31.7 mmHg LVOT 129 cm/sec AOP1/2T m/s Asc. Ao 132 cm/sec RVOT 51 cm/sec RA cm/sec PA 72 cm/sec AV Gradient Peak 7.0 mmHg AV Mean 4.2 mmHg AV Area 2.9 cm MV Gradient Peak 2.9 mmHg MV Mean 1.2 mmHg MV Area cm COMMENTS: Player Piano Technician: Bre [facility] Line Assembly Utility Worker: 1 Dr. Beck TAPE# PACS Pericardial Effusion Y DATE OF SERVICE: PROCEDURE: Echocardiogram. FINDINGS: 1. Left ventricular chamber size is within normal limits. Left ventricular systolic function is normal at 55%. 2. Left atrium is enlarged at 4.3 cm. Right atrium and right ventricular chamber sizes are as well gfui-hq-adfbsopbsv dilated. 3. Valvular structures have normal structure and motion. ECHOCARDIOGRAM REPORT [id number] JOAN THEODORE 4. Doppler interrogation reveals trace mitral regurgitation, mild tricuspid regurgitation, no other valvular insufficiency or stenosis. Pulmonary systolic pressure is estimated at 32 mmHg. 5. Moderate pericardial effusion is present. This is impinging on the RA and RV nuñez, but there is no collapse or overt sign of tamponade at this point. TRANSINT:[id number] Voice Confirmation ID: [id number] DOCUMENT ID: [id number] TOMAS BECK MD at 1434 CC: [id number] DICTATION DATE: 06/08/19 1019 OCCUPATIONAL PHYSICIAN: 06/08/19 1135 ADM IN [place] [id number] [place] [id number]
--- NOTE | 2019-06-08 14:38 | NUR ---
PT TAKEN DOWN TO VEHICLE BY WHEELCHAIR. NO S/S OF DISTRESS NOTED. ALL BELONGINGS AND PAPERWORK IN HAND.
--- NOTE | 2019-06-26 13:28 | DS ---
PATIENT:JOAN THEODORE :78 MEDICAL RECORD: [id number] DISCHARGE SUMMARY ADMISSION DATE: 06/06/19 DISCHARGE DATE: 06/08/19 DIAGNOSES: 1. Non-Q-wave myocardial infarction. 2. Myocardial bridging LAD. HOSPITAL COURSE: This is a gentleman, who presented with chest pain and mildly elevated troponin. Cardiac catheterization revealed no fixed obstructive coronary artery disease, but there was a significant myocardial bridging of the LAD. Discharged home with the addition of Lopressor to his medical regimen. Follow up with [facility] in 1 month. TRANSINT:[id number] Voice Confirmation ID: [id number] DOCUMENT ID: [id number] TOMAS HORTA MD at 1328 CC: [id number] DICTATION DATE: 06/23/19 1054 SEWER PIPE LAYER HELPER: 06/24/19 0044 DIS IN 06/08/19 [id number] [place] [address]
== END 2019-06-08 14:38 | disposition home or self-care (01) | DRG 281 ==
LOC: D.ER 18:47 → D.M2 20:43 → D.CLR 06-08 11:34
PROVIDERS: Family Medicine; ADMIT Internal Medicine Interventional Cardiology; ATTEND Internal Medicine Interventional Cardiology
PROC: B2151ZZ Fluoroscopy of Left Heart using Low Osmolar Contrast (ICD-10-PCS; 2019-06-08)
PROC: 4A023N7 Measurement of Cardiac Sampling and Pressure, Left Heart, Percutaneous Approach (ICD-10-PCS; 2019-06-08)
PROC: B2111ZZ Fluoroscopy of Multiple Coronary Arteries using Low Osmolar Contrast (ICD-10-PCS; principal; 2019-06-08 10:15)
DX: I21.4 Non-ST elevation (NSTEMI) myocardial infarction (principal); Q24.5 Malformation of coronary vessels; I42.9 Cardiomyopathy, unspecified; R94.30 Abnormal result of cardiovascular function study, unspecified; I11.0 Hypertensive heart disease with heart failure; I50.9 Heart failure, unspecified; Z87.891 Personal history of nicotine dependence

== ENCOUNTER → 2019-06-22 12:56 | Outpatient (CLI) | payer MEDICARE ==
[2019-06-07 11:51] VITALS: BMI 33.6
[~2019-06-22 12:56] MED LIST changes: +KLOR-CON 1010 MEQ
--- NOTE | 2019-06-26 13:28 | EC ---
PATIENT:JOAN THEODORE DATE OF SERVICE: 06/22/19 SEX: M MEDICAL RECORD: [id number] DATE OF : 78 LOCATION:[facility] AGE OF PATIENT: 39 ADMISSION DATE: 06/22/19 REFERRING PHYSICIAN: INTERPRETING PHYSICIAN: TOMAS BECK MD ECHOCARDIOGRAM REPORT ECHO CHARGES 4 ECHO COMPLETE Date: 06/22/19 CLINICAL DIAGNOSIS: CHF/CARDIOMYOPATHY/HTN ECHOCARDIOGRAPHIC MEASUREMENTS (adult normal given) AC root (d.<3.7cm) 3.2 cm LV Septum d (<1.2 cm> 2.0 cm Valve Excursion 2.3 cm LV Septum (systole) 2.3 cm Left Atria (s.<4.0cm> 6.0 cm LVPW d(<1.2cm) 1.6 cm RV (d.<2.3cm) 2.3 cm LVPW (sytole) 2.2 cm LV diastole(<5.6CM) 4.6 cm MV E-F(>70mm/sec) cm LV systole 3.0 cm LVOT Diameter 2.0 cm MV exc.(>10mm) cm Est.ejection fraction (50-75%) % DOPPLER: LVIT cm/sec A 48.0 cm/sec E 61.0 cm/sec LA cm/sec RVSP 23.0 mmHg LVOT 124 cm/sec AOP1/2T m/s Asc. Ao 139 cm/sec RVOT 60.0 cm/sec RA cm/sec PA 78.0 cm/sec AV Gradient Peak 7.8 mmHg AV Mean 4.4 mmHg AV Area 2.3 cm MV Gradient Peak 3.1 mmHg MV Mean 1.0 mmHg MV Area cm COMMENTS: OP - Finnish Rubber: Ashley WILLSOE Comsec Manager: 1 Dr. Beck TAPE# PACS Pericardial Effusion Y DATE OF SERVICE: 06/22/2019 FINDINGS: 1. Left ventricular chamber size is within normal limits. Left ventricular systolic function is normal. Overall ejection fraction estimated at 50%. 2. Left atrium is enlarged at 6.0 cm. Right atrium and right ventricular chamber sizes are as well moderately dilated. 3. Valvular structures have normal structure and motion. 4. Doppler interrogation reveals mild mitral regurgitation, mild tricuspid regurgitation, no other valvular insufficiency or stenosis. ECHOCARDIOGRAM REPORT [id number] JOAN THEODORE 5. Pericardial effusion is present. This is moderate. It is not hemodynamically significant. No evidence of left ventricular thrombus. TRANSINT:[id number] Voice Confirmation ID: [id number] DOCUMENT ID: [id number] TOMAS BECK MD at 1328 CC: [id number] DICTATION DATE: 06/22/19 1543 TABLE ASSEMBLER: 06/22/19 2230 DEP CLI 06/22/19 [id number] [place] [address]
== END | disposition home or self-care (01) ==
LOC: D.HCCECHO 12:56
PROVIDERS: ATTEND Internal Medicine Interventional Cardiology
DX: I42.9 Cardiomyopathy, unspecified (principal)

== ENCOUNTER 2019-08-23 20:53 | Inpatient (IN) | payer MEDICARE ==
[~2019-08-23] VITALS: Ht 190.5 cm; Wt 80.0 kg
[~2019-08-23 20:53] MED LIST changes: -KLOR-CON 1010 MEQ; +KLOR-CON 1010 MEQ PO
[2019-08-23] MEDS ORDERED: BUMETANIDE0.5 MG PO (21:04)
[2019-08-23 21:40] LABS: BASOPHILS 0.4 % (0-2); EOSINOPHILS 1.2 % (0-7); HEMATOCRIT 44.3 % (42.0-54.0); HEMOGLOBIN 14.3 g/dL (13.5-17.5); IMMATURE GRANULOCYTES 0.4 % (0-5); LYMPHOCYTES 24.6 % (15-50); MCHC 32.3 g/dL (31.0-37.0); MCV 86.7 fL (80.0-100.0); MEAN PLATELET VOLUME 10.1 fL (7.4-10.4); MONOCYTES 13.8 % (2-11); NEUTROPHILS 59.6 % (40-80); PLATELET COUNT 164 10x3/uL (130-400); RBC 5.11 10x6/uL (4.20-6.10); RDW 16.8 % (11.5-14.5); WBC 5.2 10x3/uL (4.8-10.8)
[2019-08-23 21:49] LABS: CALC OSMOLALITY 276 mosm/kg (275-300); CALCIUM 8.8 mg/dL (8.5-10.1); CARBON DIOXIDE 37.5 mmol/L (21.0-32.0); CHLORIDE - SERUM 98 mmol/L (98-107); CREATININE - SERUM 1.1 mg/dL (0.6-1.3); GLUCOSE 106 mg/dL (74-106); POTASSIUM - SERUM 3.5 mmol/L (3.5-5.1); SODIUM 138 mmol/L (136-145); UREA NITROGEN 16 mg/dL (7-18); eGFR NON AFRICAN AMERICAN 79 mL/min (90-120)
[2019-08-23 22:05] LABS: ALBUMIN 3.4 g/dL (3.4-5.0); ALKALINE PHOSPHATASE 114 U/L (46-116); ALT (SGPT) 46 U/L (10-68); BILIRUBIN - TOTAL 1.87 mg/dL (0.2-1.3); CKMB 3.3 U/L (0.0-3.6); CREATINE KINASE 460 UL (21-232); PRO BNP 2732 pg/mL (0-125); PROTEIN - SERUM 7.2 g/dL (6.4-8.2); TROPONIN-I 0.044 ng/mL (0.000-0.060)
[2019-08-23 22:10] LABS: APTT 34.1 SECONDS (22.8-39.4); INR 1.36 (0.85-1.17); PROTIME 16.3 SECONDS (11.6-15.0)
[2019-08-23 23:29] VITALS: BP 165/102
[2019-08-24 01:01] VITALS: BP 154/109; BMI 32.5
--- NOTE | 2019-08-24 01:44 | NUR ---
ADMIT TO ROOM 2116 FROM ER. ACCOMPANIED BY LORIE. ALERT/ORIENTED. ADMISSION ASSESSMENT AND HISTORY COMPLETED. HOME MEDS REVIEWED AND UPDATED. PLAN OF CARE INITIATED.
--- NOTE | 2019-08-24 04:15 | NUR ---
RESTING WITH NO DISTRESS. SR PER TELEMETRY. INSTRUCTED ON USE OF URINAL TO VOID TO MONITOR/COUNT OUTPUT. FIANCEE AT BEDSIDE.
[2019-08-24 06:01] LABS: BASOPHILS 0.4 % (0-2); EOSINOPHILS 1.1 % (0-7); HEMATOCRIT 44.3 % (42.0-54.0); HEMOGLOBIN 14.1 g/dL (13.5-17.5); IMMATURE GRANULOCYTES 0.2 % (0-5); LYMPHOCYTES 24.4 % (15-50); MCH 27.5 pg (26.0-34.0); MCHC 31.8 g/dL (31.0-37.0); MCV 86.5 fL (80.0-100.0); MEAN PLATELET VOLUME 9.9 fL (7.4-10.4); NEUTROPHILS 58.9 % (40-80); PLATELET COUNT 163 10x3/uL (130-400); RBC 5.12 10x6/uL (4.20-6.10); WBC 5.3 10x3/uL (4.8-10.8)
[2019-08-24 06:50] LABS: ALBUMIN 3.3 g/dL (3.4-5.0); ALKALINE PHOSPHATASE 107 U/L (46-116); ALT (SGPT) 36 U/L (10-68); BILIRUBIN - TOTAL 1.79 mg/dL (0.2-1.3); CALC OSMOLALITY 279 mosm/kg (275-300); CALCIUM 8.3 mg/dL (8.5-10.1); CHLORIDE - SERUM 100 mmol/L (98-107); CREATININE - SERUM 1.1 mg/dL (0.6-1.3); GLUCOSE 96 mg/dL (74-106); POTASSIUM - SERUM 3.3 mmol/L (3.5-5.1); PROTEIN - SERUM 6.6 g/dL (6.4-8.2); SODIUM 140 mmol/L (136-145); UREA NITROGEN 14 mg/dL (7-18); eGFR NON AFRICAN AMERICAN 79 mL/min (90-120)
[2019-08-24 08:02] VITALS: BP 137/97
--- NOTE | 2019-08-24 10:30 | NUR ---
URINE SPECIMEN COLLECTED AND TAKEN TO LAB. WILL MONITOR.
[2019-08-24 11:41] LABS: UDS - AMPHET NEGATIVE QUAL (NEGATIVE); UDS - BARB NEGATIVE QUAL (NEGATIVE); UDS - BENZO NEGATIVE QUAL (NEGATIVE); UDS - COCAINE NEGATIVE QUAL (NEGATIVE); UDS - OPIATE NEGATIVE QUAL (NEGATIVE); UDS - PCP NEGATIVE QUAL (NEGATIVE); UDS - THC NEGATIVE QUAL (NEGATIVE)
[2019-08-24 11:56] VITALS: BP 157/105
[2019-08-24 12:24] LABS: APPEARANCE CLEAR (CLEAR); BACTERIA FEW /hpf (NEGATIVE); BILIRUBIN NEGATIVE (NEGATIVE); COLOR DK YELLOW (YELLOW); EPITHELIAL CELLS OCC /hpf (0-5); GLUCOSE NEGATIVE (NEGATIVE); KETONE NEGATIVE (NEGATIVE); MUCUS <1+ /lpf (NONE SEEN); NITRITE NEGATIVE (NEGATIVE); PROTEIN TRACE mg/dL (NEGATIVE); RED CELLS - URINE NONE SEEN /hpf (0-5); SPERMATOZOA PRESENT /hpf (NONE SEEN); WHITE CELLS - URINE NSEEN /hpf (NEGATIVE)
[2019-08-24 14:45] VITALS: BMI 32.4
[2019-08-24 17:20] VITALS: BP 132/89
--- NOTE | 2019-08-24 19:58 | NUR ---
RECEIVED BEDSIDE REPORT. PATIENT IS ALERT AND ORIENTED, RESTING COMFORTABLY IN BED. RESPIRATIONS ARE EVEN AND UNLABORED. NO S/S OF DISTRESS. NO C/O PAIN. CALL LIGHT WITHIN REACH. WILL CPOC.
[2019-08-24 20:30] VITALS: BP 123/87
[2019-08-25 04:30] VITALS: BP 119/78
[2019-08-25 06:15] LABS: BASOPHILS 2.3 % (0-2); EOSINOPHILS 1.1 % (0-7); HEMATOCRIT 44.4 % (42.0-54.0); HEMOGLOBIN 13.9 g/dL (13.5-17.5); IMMATURE GRANULOCYTES 0.2 % (0-5); LYMPHOCYTES 29.6 % (15-50); MCH 27.5 pg (26.0-34.0); MCHC 31.3 g/dL (31.0-37.0); MCV 87.7 fL (80.0-100.0); MONOCYTES 11.6 % (2-11); NEUTROPHILS 55.2 % (40-80); PLATELET COUNT 192 10x3/uL (130-400); RBC 5.06 10x6/uL (4.20-6.10); RDW 17.1 % (11.5-14.5); WBC 6.1 10x3/uL (4.8-10.8)
[2019-08-25 06:39] LABS: CALCIUM 8.6 mg/dL (8.5-10.1); CARBON DIOXIDE 36.4 mmol/L (21.0-32.0); CREATININE - SERUM 1.3 mg/dL (0.6-1.3); POTASSIUM - SERUM 4.4 mmol/L (3.5-5.1)
--- NOTE | 2019-08-25 10:04 | NUR ---
UP OUT OF BED TO AMBULATE WITH PT ASSIST.
[2019-08-25 10:09] VITALS: BP 118/84
--- NOTE | 2019-08-25 13:07 | CN ---
PATIENT NAME:JOAN THEODORE MEDICAL RECORD: [id number] : 78 LOCATION:D. D.2116 ADMIT DATE: 08/23/19 ACCOUNT: [id number] CONSULTING PHYSICIAN: DENA URIAS MD REFERRING PHYSICIAN: ASHOK STRICKLAND MD DATE OF CONSULTATION: 08/24/2019 HISTORY OF PRESENT ILLNESS: A 39-year-old gentleman with a history of a non-ST elevation myocardial infarction approximately 1 month ago, who underwent diagnostic angiography, had a moderate pericardial effusion at that time. LV function itself was normal. The only thing, he had a mild myocardial bridge, admitted with dyspnea over the past 7-10 days. Thyroid functions have been normal. We are asked to see him concerning his cardiovascular status. PAST MEDICAL HISTORY: He has history of hypertension. ALLERGIES: PENICILLIN, ASPIRIN. MEDICATIONS: Include amlodipine 10 mg p.o. daily, carvedilol 12.5 b.i.d., lisinopril 40 every day, Wellbutrin 300 every day, Celexa 40 every day, Bumex 0.5 every day. SOCIAL HISTORY: Smokes less than a pack a day, nondrinker. No recreational drug use. No set exercise program. REVIEW OF SYSTEMS: The patient reports easy bruising but reports no swollen glands. The patient reports no fever, no night sweats, no significant weight gain, no significant weight loss. No significant exercise tolerance. The patient reports no dry eyes, no irritation, no vision change. Patient reports no difficulty hearing and no ear pain. Patient reports no frequent nose bleeds or nose and sinus problems. Patient reports on arm pain on exertion. No shortness of breath while lying down. No history of heart murmur. Patient reports no cough, no wheezing or coughing up blood. Patient reports no abdominal pain, no vomiting. Normal appetite. No diarrhea and not vomiting blood. No nausea and no constipation. Patient reports no incontinence. No difficulty urinating. No hematuria. No increased frequency. Patient reports no muscle aches. No weakness, no arthralgias, no back pain. No swelling of the extremities. Patient reports no abnormal mole, no jaundice, no rashes. Reports no loss of consciousness. No weakness and no numbness. No seizures, dizziness, or headaches. The patient reports no depression, no sleep disturbance, feeling safe in a relationship and no alcohol abuse. Patient reports on fatigue. Reports no runny nose or sinus pressure. No itching, no hives, and no frequent sneezing. PHYSICAL EXAMINATION: GENERAL: This is a pleasant gentleman, in no acute distress. NECK: No JVD or bruit. HEART: Regular, II/ systolic ejection murmur. LUNGS: Fair excursion. Few expiratory wheezes ABDOMEN: Soft, nontender. EXTREMITIES: Pulse 2+. No edema. DIAGNOSTIC DATA: EKG, no acute changes. IMPRESSION: We will check a 2D echocardiographic study to assess for CONSULT REPORT [id number] JOAN THEODORE pericardial effusion, he did have moderate before. Further recommendations based on clinical course. TRANSINT:[id number] Voice Confirmation ID: [id number] DOCUMENT ID: [id number] DENA URIAS MD at 1307 CC: [id number] DICTATION DATE: 08/24/19 0958 FILM OR TAPE LIBRARIAN: 08/24/19 1515 ADM IN [id number] [place] [address]
[2019-08-25 14:12] VITALS: BP 112/70
[2019-08-25 14:27] LABS: HEMATOCRIT 45.5 % (42.0-54.0); HEMOGLOBIN 14.5 g/dL (13.5-17.5); MCH 27.9 pg (26.0-34.0); MCHC 31.9 g/dL (31.0-37.0); MCV 87.5 fL (80.0-100.0); MEAN PLATELET VOLUME 10.1 fL (7.4-10.4); RBC 5.2 10x6/uL (4.20-6.10); WBC 7.2 10x3/uL (4.8-10.8)
[2019-08-25 14:47] LABS: ANION GAP 7.4 mmol/L (8-16); APTT 34.3 SECONDS (22.8-39.4); CALCIUM 8.2 mg/dL (8.5-10.1); CARBON DIOXIDE 34.7 mmol/L (21.0-32.0); CREATININE - SERUM 1.2 mg/dL (0.6-1.3); INR 1.2 (0.85-1.17); POTASSIUM - SERUM 4.1 mmol/L (3.5-5.1); PROTIME 14.7 SECONDS (11.6-15.0)
--- NOTE | 2019-08-25 14:53 | NUR ---
EKG COMPLETED ORDERED. HT AND WT ALONG WITH MED LIST PLACED ON FRONT OF CHART.
[2019-08-25 15:46] VITALS: Ht 190.5 cm; Wt 80.0 kg
[2019-08-25 19:00] VITALS: BP 123/86
[2019-08-25 20:00] VITALS: BP 124/60
[2019-08-26] VITALS (22 sets, daily range): BP systolic 102–130; BP diastolic 61–87
[2019-08-26 05:49] LABS: CALC OSMOLALITY 279 mosm/kg (275-300); CALCIUM 8.2 mg/dL (8.5-10.1); CARBON DIOXIDE 35.1 mmol/L (21.0-32.0); CHLORIDE - SERUM 100 mmol/L (98-107); CREATININE - SERUM 1.1 mg/dL (0.6-1.3); GLUCOSE 128 mg/dL (74-106); POTASSIUM - SERUM 4.2 mmol/L (3.5-5.1); SODIUM 137 mmol/L (136-145); eGFR NON AFRICAN AMERICAN 79 mL/min (90-120)
[2019-08-26 05:56] LABS: UREA NITROGEN 23 mg/dL (7-18)
[2019-08-26 06:12] LABS: BASOPHILS 0.5 % (0-2); EOSINOPHILS 0 % (0-7); HEMATOCRIT 44.8 % (42.0-54.0); IMMATURE GRANULOCYTES 0.2 % (0-5); LYMPHOCYTES 17.4 % (15-50); MCH 27.4 pg (26.0-34.0); MCHC 31.3 g/dL (31.0-37.0); MCV 87.7 fL (80.0-100.0); MEAN PLATELET VOLUME 9.9 fL (7.4-10.4); MONOCYTES 7.2 % (2-11); NEUTROPHILS 74.7 % (40-80); PLATELET COUNT 216 10x3/uL (130-400); RBC 5.11 10x6/uL (4.20-6.10); RDW 16.6 % (11.5-14.5); WBC 6.4 10x3/uL (4.8-10.8)
--- NOTE | 2019-08-26 08:54 | EC ---
PATIENT:JOAN THEODORE DATE OF SERVICE: 08/23/19 SEX: M MEDICAL RECORD: [id number] DATE OF : 78 LOCATION:D.M2 D.211 AGE OF PATIENT: 39 ADMISSION DATE: 08/23/19 REFERRING PHYSICIAN: INTERPRETING PHYSICIAN: DENA URIAS MD ECHOCARDIOGRAM REPORT ECHO CHARGES 5 ECHO LIMITED Date: 08/24/19 CLINICAL DIAGNOSIS: PERICARDIAL EFFUSION ECHOCARDIOGRAPHIC MEASUREMENTS (adult normal given) AC root (d.<3.7cm) 0 cm LV Septum d (<1.2 cm> 0 cm Valve Excursion 0 cm LV Septum (systole) 0 cm Left Atria (s.<4.0cm> 0 cm LVPW d(<1.2cm) 0 cm RV (d.<2.3cm) 0 cm LVPW (sytole) 0 cm LV diastole(<5.6CM) 0 cm MV E-F(>70mm/sec) 0 cm LV systole 0 cm LVOT Diameter 0 cm MV exc.(>10mm) 0 cm Est.ejection fraction (50-75%) % DOPPLER: LVIT 0 cm/sec A 0 cm/sec E 0 cm/sec LA 0 cm/sec RVSP 0 mmHg LVOT 0 cm/sec AOP1/2T 0 m/s Asc. Ao 0 cm/sec RVOT 0 cm/sec RA 0 cm/sec PA 0 cm/sec AV Gradient Peak 0 mmHg AV Mean 0 mmHg AV Area 0 cm MV Gradient Peak 0 mmHg MV Mean 0 mmHg MV Area 0 cm COMMENTS: LIMITED STUDY (2-D ONLY) Code Enforcement Officer: 1 JOSE WILLSOE Clip Bolter And Wrapper: 3 Dr. Vázquez TAPE# PACS Pericardial Effusion Y DATE OF SERVICE: Limited 2D Study For follow-up pericardial effusion. LV internal dimensions appear normal. LV appears to be globally hypo with impaired diastolic filling. There is adequate valve excursion in the aortic and mitral valve. This is concerning for a restrictive pericardial effusion. This is at least 3 cm posteriorly. TRANSINT:[id number] Voice Confirmation ID: [id number] DOCUMENT ID: [id number] ECHOCARDIOGRAM REPORT [id number] JOAN THEODORE DENA URIAS MD at 0854 CC: [id number] DICTATION DATE: 08/25/19 1308 LAUNCH [employer] POLICE: 08/25/19 1901 ADM IN [facility] [address] [place] [address]
--- NOTE | 2019-08-26 10:15 | NUR ---
PRE-OPS GIVEN. TO OR BY BED.
--- NOTE | 2019-08-26 13:46 | NUR ---
O2 SAT 100 ON 15L SIMPLE MASK. PT MORE AWAKE. 02 DECREASED TO 5L NC. WILL CONTINUE TO MONITOR.
--- NOTE | 2019-08-26 15:00 | NUR ---
PT APPEARS ASLEEP. AROUSES TO VOICE. O2 DECREASED TO 3L VIA NC. WILL CONTINUE TO MONITOR.
--- NOTE | 2019-08-26 15:45 | NUR ---
A-LINE DC'D AT THIS TIME PER DR. RANDALL.
--- NOTE | 2019-08-26 17:10 | NUR ---
ATE 100% OF DINNER TRAY. NO NAUSEA REPORTED. ADVANCED DIET TO REGULAR PER ORDER.
--- NOTE | 2019-08-26 17:50 | NUR ---
DR. RANDALL AT BEDSIDE. OKAY TO DC CATHETER.
--- NOTE | 2019-08-26 18:30 | NUR ---
MCL[place]IN CATHETER DC'D AT THIS TIME PER ORDERS.
--- NOTE | 2019-08-26 19:20 | NUR ---
REPORT RECEIVED, SHIFT ASSESSMENT COMPLETED PER FLOW SHEET, SEE FOR DETAILS. 2100 DENIES NEEDS AT THIS TIME, CALL LIGHT WITHIN REACH. WILL CONTINUE TO MONITOR. 2300 REASSESSMENT COMPLETED PER FLOW SHEET, SEE FOR DETAILS. 0100 RESTING IN BED, NO ACUTE DISTRESS NOTED, WILL CONTINUE TO MONITOR.
[2019-08-27] VITALS (27 sets, daily range): BP systolic 91–127; BP diastolic 52–82
[2019-08-27 07:08] LABS: BASOPHILS 0.1 % (0-2); EOSINOPHILS 0 % (0-7); HEMOGLOBIN 13.3 g/dL (13.5-17.5); IMMATURE GRANULOCYTES 0.2 % (0-5); LYMPHOCYTES 5.6 % (15-50); MCH 27.6 pg (26.0-34.0); MCHC 30.9 g/dL (31.0-37.0); MCV 89.2 fL (80.0-100.0); MEAN PLATELET VOLUME 10.3 fL (7.4-10.4); MONOCYTES 6.7 % (2-11); NEUTROPHILS 87.4 % (40-80); PLATELET COUNT 216 10x3/uL (130-400); RBC 4.82 10x6/uL (4.20-6.10)
[2019-08-27 07:09] LABS: WBC 13.1 10x3/uL (4.8-10.8)
[2019-08-27 07:16] LABS: ALBUMIN 3.1 g/dL (3.4-5.0); ANION GAP 8.1 mmol/L (8-16); BILIRUBIN - TOTAL 1.33 mg/dL (0.2-1.3); CALCIUM 8.2 mg/dL (8.5-10.1); CARBON DIOXIDE 34.4 mmol/L (21.0-32.0); CREATININE - SERUM 1.2 mg/dL (0.6-1.3); MAGNESIUM - SERUM 2.3 mg/dL (1.8-2.4); PHOSPHOROUS 4.6 mg/dL (2.5-4.9); POTASSIUM - SERUM 4.5 mmol/L (3.5-5.1); PROTEIN - SERUM 6.7 g/dL (6.4-8.2)
--- NOTE | 2019-08-27 09:04 | NUR ---
0700 PT RECIEVED IN BED ALERT AND ORIENTED VSS ON 2L NC, R IJ CVL DRESSING CDI, SUBSTERNAL DRESSING CDI WITH CT TO WATER SEAL SEROSANG DRAINAGE 0730 ASSISTED UP TO CHAIR ATE 75% BREAKFAST 0900 TOOK AM MEDS, MEDS REVIEWED WITH DR RANDALL AND PT
--- NOTE | 2019-08-27 09:58 | NUR ---
Nutrition Follow-up: Pericardial window yesterday. Eating breakfast at time of visit this AM. Reports good appetite/PO intake. Diet: Regular PO intake: 75-100% Wt: 271.1# Last BM: ~2 days ago per pt; reports this is normal Labs noted: Glu 140, Ca 8.2, Alb 3.1 Meds noted: Senokot -May consider cardiac diet. -RD following.
--- NOTE | 2019-08-27 10:47 | OP ---
PATIENT NAME: JOAN THEODORE MEDICAL RECORD: [id number] :78 LOCATION:D.CVI D.CV07 ADMISSION DATE:08/23/19 SURGEON: YORDAN RANDALL MD DATE OF OPERATION: 08/26/2019 SURGEON: Yordan Randall MD CHILD PROTECTIVE SERVICES SPECIALIST: None. PROCEDURE PERFORMED: Subxiphoid pericardial window. PREOPERATIVE DIAGNOSIS: Pericardial effusion. POSTOPERATIVE DIAGNOSIS: Pericardial effusion. ANESTHESIA: General endotracheal anesthesia. ESTIMATED BLOOD LOSS: Minimal. SPECIMENS: 1. Two 1 x 1 cm pericardial biopsies. 2. Pericardial fluid for AFB, fungal and routine cultures and stains as well as cytology and pathology. COMPLICATIONS: None. CONDITION: Stable. DISPOSITION: ICU. OPERATIVE FINDINGS: 1. Transesophageal echocardiography confirmed circumferential pericardial effusion, larger posteriorly and left ventricular hypertrophy. There was complete drainage after removal of the fluid. The blood pressure did not increase after drainage of fluid. 850 cc of serous fluid removed OPERATIVE INDICATION: Dyspnea and enlarging pericardial effusion. PROCEDURE IN DETAIL: The patient was brought to the operating suite where after lines were placed, the patient was prepped and then general anesthesia was obtained. The vertical incision of the xiphoid was made. A portion of the xiphoid was removed. Upward retraction of the left costal margin was performed and the inferior surface of the pericardium was identified. Aspiration was obtained. The pericardium was incised and fluid was removed for culture. Then, the pericardial window was created with 2 separate 1 x 1 cm biopsies. The edges were made hemostatic and the fluid was removed. A drain was placed through a separate stab wound and placed on the diaphragmatic surface of the pericardium and sutured into place. Marcaine was used for local anesthetic. The fascia was closed. Subcutaneous tissue was irrigated with antibiotic irrigation. Subcutaneous tissue was closed. Skin was closed. Dermabond was placed. The needle and sponge counts were reported as correct. The patient was taken to ICU in stable condition. TRANSINT:[id number] Voice Confirmation ID: [id number] DOCUMENT ID: [id number] OPERATIVE REPORT [id number] JOAN THEODORE YORDAN RANDALL MD at 1047 CC: MILAGROS PHAM MD and DENA URIAS MD [id number] DICTATION DATE: 08/26/19 1258 SENIOR SAFETY SUPPORT MANAGER: 08/26/19 1459 ADM IN [facility] [address] [facility] [place], [facility]
[2019-08-27 14:10] LABS: ACID FAST SMEAR Negative (()); AFB SPECIMEN PROCESSING Concentration (())
--- NOTE | 2019-08-27 15:33 | NUR ---
HR NOTED TO BE AFIB ON MONITOR, EKG DONE TO CONFIRM, EKG SHOWING AFIB, PAGED DR RANDALL WHO STATED TO CALL [facility], PAGED DR URIAS WHO RETURNED CALL WITH ORDERS FOR 20 LASIX X1
--- NOTE | 2019-08-27 16:32 | MORECARE ---
CASE MANAGEMENT DISCHARGE SUMMARY PATIENT: JOAN THEODORE UNIT: [id number] ADM DATE: 08/23/19 AGE: 39 : [birth year] SEX: M ROOM/BED: D.[facility] AUTHOR: QIAN MOTA PHYSICIAN: REFERRING PHYSICIAN: ASHOK STRICKLAND MD DATE OF SERVICE: 08/27/19 Discharge Plan Patient Name: JOAN THEODORE Facility[facility]:[place] : 1980 Planned Disposition: Home Anticipated Discharge Date: Discharge Date: Expected LOS: Initial Reviewer: [email or web address] Initial Review Date: 08/27/2019 Generated: 08/27/19 5:31 pm Patient Name: JOAN THEODORE Page [phone] at 1632 All edits/amendments must be made on the electronic document DICTATION DATE: 08/27/19 163 MANUFACTURING INDUSTRIAL ENGINEER: JESSICA 08/27/19 1631 RPT#: [id number] AL DATE: STATUS: ADM IN [facility] [address] [place] [address] END OF REPORT
--- NOTE | 2019-08-27 16:40 | MORECARE ---
CASE MANAGEMENT DISCHARGE SUMMARY PATIENT: JOAN THEODORE UNIT: [id number] ADM DATE: 08/23/19 AGE: 39 : [birth year] SEX: M ROOM/BED: D[facility] AUTHOR: NAKUL,DOC PHYSICIAN: REFERRING PHYSICIAN: ASHOK STRICKLAND MD DATE OF SERVICE: 08/27/19 Discharge Plan Patient Name: JOAN THEODORE Facility: [facility]:[place] : 1980 Planned Disposition: Home Anticipated Discharge Date: Discharge Date: Expected LOS: Initial Reviewer: [email or web address] Initial Review Date: 08/27/2019 Generated: 08/27/19 5:40 pm Comments DCP- Discharge Planning Updated by [email or web address]: Colette Bone on 08/27/19 3:[address] Patient Name: JOAN THEODORE Admission Status: ER Accout number: [id number] Admission Date: 08-23-2019 : 1980 Admission Diagnosis: Attending: ASHOK STRICKLAND Current LOS: 4 Anticipated DC Date: Planned Disposition: Home Primary Insurance: MEDICARE A & B Discharge Planning Comments: CM met with patient at bedside after explaining CM role and obtaining verbal consent. Patient lives at home with fianc? where he is independent with his care and plans to return there upon discharge. Patient feels this would be a safe discharge. CM discussed availability / needs of home health and medical equipment. Patient denies any discharge needs at this time. Patient states he will have his family drive him home upon discharge. Patient requested information on living will / advanced directive. CM gave patient pamphlet on advance directive. CM will continue to follow and assist as needed with discharge planning / needs. Drafter: Colette Bone DCPIA - Discharge Planning Initial Assessment Updated by [email or web address]: Colette Bone on 08/27/19 4:32 pm * Is the patient Alert and Oriented? Yes * How many steps to enter\exit or inside your home? 17 * PCP [facility] * [facility] * Preadmission Environment Home with Family * ADLs Independent * Equipment None * List name and contact numbers for known caregivers / representatives who currently or will assist patient after discharge: MEGHA GRANT - [phone] BHAVIN HERRERA - [phone] * Verbal permission to speak to the caregivers and representatives has been obtained from the patient. Yes * Community resources currently utilized None * Additional services required to return to the preadmission environment? No * Can the patient safely return to the preadmission environment? Yes * Has this patient been hospitalized within the prior 30 days at any hospital? No Last DP export: 08/27/19 3:32 Patient Name: JOAN THEODORE Page [phone] at 1640 All edits/amendments must be made on the electronic document DICTATION DATE: 08/27/19 1640 GAS UTILITY WORKER: JESSICA 08/27/19 1640 RPT#: [id number] DC DATE: STATUS: ADM IN [facility] [address] [place] [address] END OF REPORT
--- NOTE | 2019-08-27 17:01 | NUR ---
1100 REPOSITIONED IN CHAIR 1200 ATE 100% DINNER 1300 SEEN BY PT
--- NOTE | 2019-08-27 18:09 | NUR ---
ASSISTED PT FROM CHAIR UP TO BED, PT HR 30S NO P WAVES, JUNCTIONAL THEN NSR 70S, BP 112/63, PT DENIES ANY LIGHTHEADEDNESS ETC, DR BRYAN CALLED, NO NEW ORDERS
--- NOTE | 2019-08-27 19:00 | NUR ---
BEDSIDE REPORT AND SHIFT ASSESSMENT COMPLETE, SEE FLOWSHEET. PT SLEEPING, EASY TO AROUSE. SUBSTERNAL DRSNG CDI, CT TO WATERSEAL WITHOUT KINKS. O2 SAT 96 ON 2 L NC. R IJ DRESSING CDI, SALINE LOCKED. PT DENIES NEEDS AT THIS TIME. WILL MONITOR.
--- NOTE | 2019-08-27 21:00 | NUR ---
MEDS GIVEN PER NOV. PT REFUSED KLONOPIN. FAMILY AT BEDSIDE, UPDATE GIVEN. NO NEEDS AT THIS TIME. WILL MONITOR.
--- NOTE | 2019-08-27 23:00 | NUR ---
REASSESSMENT COMPLETE, SEE FLOWSHEET. VSS, NO SIGNS OF ACUTE DISTRESS NOTED. PT DENIES ANY NEEDS AT THIS TIME. CALL LIGHT IN REACH. WILL MONITOR.
[2019-08-28] VITALS (27 sets, daily range): BP systolic 92–122; BP diastolic 55–80
--- NOTE | 2019-08-28 01:00 | NUR ---
PT SLEEPING, VSS. CALL LIGHT IN REACH, WILL MONITOR.
--- NOTE | 2019-08-28 03:00 | NUR ---
REASSESSMENT COMPLETE, SEE FLOWSHEET. VSS, NO SIGNS OF ACUTE DISTRESS NOTED. PT SLEEPING, WILL MONITOR.
--- NOTE | 2019-08-28 05:00 | NUR ---
PT COUGHING UP YELLOW, THICK SPUTUM.
[2019-08-28 05:39] LABS: BASOPHILS 0 % (0-2); EOSINOPHILS 0 % (0-7); HEMATOCRIT 42.7 % (42.0-54.0); IMMATURE GRANULOCYTES 0.2 % (0-5); LYMPHOCYTES 5.4 % (15-50); MCH 27.4 pg (26.0-34.0); MCHC 30.4 g/dL (31.0-37.0); MCV 89.9 fL (80.0-100.0); MEAN PLATELET VOLUME 9.8 fL (7.4-10.4); MONOCYTES 8.2 % (2-11); NEUTROPHILS 86.2 % (40-80); PLATELET COUNT 215 10x3/uL (130-400); RBC 4.75 10x6/uL (4.20-6.10); RDW 16.9 % (11.5-14.5); WBC 10.3 10x3/uL (4.8-10.8)
[2019-08-28 06:00] LABS: ALBUMIN 2.9 g/dL (3.4-5.0); ANION GAP 4.8 mmol/L (8-16); BILIRUBIN - TOTAL 0.76 mg/dL (0.2-1.3); CARBON DIOXIDE 35.7 mmol/L (21.0-32.0); CREATININE - SERUM 1.3 mg/dL (0.6-1.3); POTASSIUM - SERUM 4.5 mmol/L (3.5-5.1); PROTEIN - SERUM 6.6 g/dL (6.4-8.2)
--- NOTE | 2019-08-28 06:00 | NUR ---
ASSISTED PT TO BEDSIDE CHAIR. =
[2019-08-28 10:10] LABS: FUNGUS STAIN Final report (())
[2019-08-28 11:10] LABS: ANA REFLEX - ANTICHROMATIN ABS 0.3 AI (0.0-0.9); ANA REFLEX - CENTROMERE B ABS <0.2 AI (0.0-0.9); ANA REFLEX - DBL STRANDED DNA <1 IU/mL (0-9); ANA REFLEX - DIRECT Positive (Negative); ANA REFLEX - JO-1 AB <0.2 AI (0.0-0.9); ANA REFLEX - RNP ANTIBODIES 1.1 AI (0.0-0.9); ANA REFLEX - SCL-70 <0.2 AI (0.0-0.9); ANA REFLEX - SJOGRENS AB SSA <0.2 AI (0.0-0.9); ANA REFLEX - SJOGRENS AB SSB <0.2 AI (0.0-0.9); ANA REFLEX - SMITH AB <0.2 AI (0.0-0.9)
--- NOTE | 2019-08-28 14:57 | NUR ---
Rehab Prescreening Consult recieved and the chart has been reviewed. He is a potential candidate for acute rehab when medically stable, but has already ambulated 200 ft. Rehab will discuss with the CM Colette oBne RN. Hortencia Morales RN Clinical Liaison, Rehab
--- NOTE | 2019-08-28 15:32 | NUR ---
1200: PERICARDIAL DRAIN DC'D BY DR. BRYAN'S NURSE.
--- NOTE | 2019-08-28 19:00 | NUR ---
PT ASSESSMENT COMPLETED AT THIS TIME, NO CHANGES NOTED FROM NURSE REPORT, PT AWAKE AND ALERT SITTING ON THE BEDSIDE, PT DENIES ANY COMPLAINTS AT THIS TIME, VSS, WILL MONITOR FOR CHANGES
--- NOTE | 2019-08-28 21:00 | NUR ---
PT GIVEN PO MEDS AT THIS TIME, FAMILY AT BEDSIDE AT THIS TIME, PT DENIES COMPLIANTS AND REQUESTS TO HOLD NIGHT DOSE OF KLONIPIN,
--- NOTE | 2019-08-28 23:00 | NUR ---
PT REASSESSMENT COMPELTED AT THIS TIME, NO CHANGES NOTED, VSS, WILL MONITOR FOR CHANGES
[2019-08-29] VITALS (17 sets, daily range): BP systolic 103–127; BP diastolic 62–83
--- NOTE | 2019-08-29 01:00 | NUR ---
PT RESTING WITH EYES CLOSED, RESP EVEN AND NON LABOREDM VSS, NO DISTRESS NOTED AT THIS TIME
--- NOTE | 2019-08-29 03:00 | NUR ---
PT REASSESSMENT COMPLETED AT THIS TIME, VSS NO CHANGES NOTED
--- NOTE | 2019-08-29 05:00 | NUR ---
I&O AND DAILY WEIGHT COMPLETED, NO CHANGES NOTED, VSS
[2019-08-29 06:14] LABS: BASOPHILS 0 % (0-2); EOSINOPHILS 0.2 % (0-7); HEMATOCRIT 42.8 % (42.0-54.0); HEMOGLOBIN 13.1 g/dL (13.5-17.5); IMMATURE GRANULOCYTES 0.3 % (0-5); LYMPHOCYTES 15.3 % (15-50); MCH 27.6 pg (26.0-34.0); MCHC 30.6 g/dL (31.0-37.0); MCV 90.1 fL (80.0-100.0); MONOCYTES 14.2 % (2-11); PLATELET COUNT 215 10x3/uL (130-400); RBC 4.75 10x6/uL (4.20-6.10); RDW 16.8 % (11.5-14.5); WBC 9.2 10x3/uL (4.8-10.8)
[2019-08-29 06:26] LABS: ALBUMIN 2.6 g/dL (3.4-5.0); ALKALINE PHOSPHATASE 78 U/L (46-116); BILIRUBIN - TOTAL 0.73 mg/dL (0.2-1.3); CALC OSMOLALITY 288 mosm/kg (275-300); CALCIUM 8.3 mg/dL (8.5-10.1); CARBON DIOXIDE 35.2 mmol/L (21.0-32.0); CHLORIDE - SERUM 103 mmol/L (98-107); CREATININE - SERUM 1.1 mg/dL (0.6-1.3); GLUCOSE 106 mg/dL (74-106); POTASSIUM - SERUM 4.3 mmol/L (3.5-5.1); PROTEIN - SERUM 6.3 g/dL (6.4-8.2); SODIUM 141 mmol/L (136-145); UREA NITROGEN 34 mg/dL (7-18); eGFR NON AFRICAN AMERICAN 79 mL/min (90-120)
[2019-08-29 06:27] LABS: ALT (SGPT) 52 U/L (10-68)
--- NOTE | 2019-08-29 16:39 | NUR ---
TRANSFER FROM ICU BY W/C. OREINTED TO ROOM. CALL LIGHT IN REACH. WILL CONT. PLAN OF CARE.
--- NOTE | 2019-08-29 16:43 | NUR ---
1620: REPORT CALLED TO ALMA FAROOQ. 1630: TRANSFERRED TO ROOM 2122 VIA WHEELCHAIR.
--- NOTE | 2019-08-29 17:00 | MORECARE ---
CASE MANAGEMENT DISCHARGE SUMMARY PATIENT: JOAN THEODORE UNIT: [id number] ADM DATE: 08/23/19 AGE: 39 : 78 SEX: M ROOM/BED: D.8795 AUTHOR: QIAN MOTA PHYSICIAN: REFERRING PHYSICIAN: ASHOK STRICKLAND MD DATE OF SERVICE: 08/29/19 Discharge Plan Patient Name: JOAN THEODORE Facility: [facility]:[place] : 1980 Planned Disposition: Home Anticipated Discharge Date: Discharge Date: Expected LOS: Initial Reviewer: [email or web address] Initial Review Date: 08/27/2019 Generated: 08/29/19 5:59 pm Comments DCP- Discharge Planning Updated by [email or web address]: Colette Bone on 08/29/19 3:[address] Late Entry 08/28/19 CM spoke to patient regarding Inpatient Rehab. ESE signed for [facility] Inpatient Rehab. CM will continue to follow and assist as needed with discharge planning / needs. DCP- Discharge Planning Updated by [email or web address]: Colette Bone on 08/27/19 3:[address] Patient Name: JOAN THEODORE Admission Status: ER Accout number: [id number] Admission Date: 08-23-2019 : 1980 Admission Diagnosis: Attending: ASHOK STRICKLAND Current LOS: 4 Anticipated DC Date: Planned Disposition: Home Primary Insurance: MEDICARE A & B Discharge Planning Comments: CM met with patient at bedside after explaining CM role and obtaining verbal consent. Patient lives at home with fianc? where he is independent with his care and plans to return there upon discharge. Patient feels this would be a safe discharge. CM discussed availability / needs of home health and medical equipment. Patient denies any discharge needs at this time. Patient states he will have his family drive him home upon discharge. Patient requested information on living will / advanced directive. CM gave patient pamphlet on advance directive. CM will continue to follow and assist as needed with discharge planning / needs. Supervisor Telephone Clerks: Colette Bone DCPIA - Discharge Planning Initial Assessment Updated by [email or web address]: Colette Bone on 08/27/19 4:32 pm * Is the patient Alert and Oriented? Yes * How many steps to enter\exit or inside your home? 17 * PCP [facility] * Pharm[facility] * Preadmission Environment Home with Family * ADLs Independent * Equipment None * List name and contact numbers for known caregivers / representatives who currently or will assist patient after discharge: MEGHA GRANT - [phone] BHAVIN HERRERA - [phone] * Verbal permission to speak to the caregivers and representatives has been obtained from the patient. Yes * Community resources currently utilized None * Additional services required to return to the preadmission environment? No * Can the patient safely return to the preadmission environment? Yes * Has this patient been hospitalized within the prior 30 days at any hospital? No Coverage Notice Reviewer: [email or web address] Kal Bone Notice Issued Date-Time: 08/28/2019 12:20 Notice Type: Patient Choice Letter Notice Delivered To: Patient Relationship to Patient: Self Headwaitress Name: Delivery Method: HAND - Hand Delivered Patricia Days: Prior Verbal Notification: Recipient Understood Notice: Yes Recipient Signature: Yes Med Rec Note Co-signed by Attending: Coverage Notice Comment: Last DP export: 08/27/19 3:40 Patient Name: JOAN THEODORE Page [phone] at 1700 All edits/amendments must be made on the electronic document DICTATION DATE: 08/29/191658 ACCOUNTING MANAGER: JESSICA 08/29/191658 RPT#: [id number] DC DATE: STATUS: ADM IN [facility] [address] [place] [address] END OF REPORT
--- NOTE | 2019-08-29 19:15 | NUR ---
RECEIVED REPORT, WILL ASSUME CARE OF PT, PT IS SLEEPING, HAS ALEJANDRA HOSE ON, MADE SURE THEY WERE OVER TOES, DENIES ANY NEEDS AT THIS TIME, BED IS LOW, SRX2, CALL LIGHT IN REACH, WILL CONTINUE PLAN OF CARE
[2019-08-30 00:26] VITALS: BP 116/77
--- NOTE | 2019-08-30 04:40 | NUR ---
I have reviewed this patient and I concur with the Shift Assessment completed by the Licensed Practical Nurse today this shift.
[2019-08-30 05:14] LABS: HEMATOCRIT 43.8 % (42.0-54.0); HEMOGLOBIN 13.3 g/dL (13.5-17.5); MCH 26.9 pg (26.0-34.0); MCHC 30.4 g/dL (31.0-37.0); MCV 88.5 fL (80.0-100.0); RBC 4.95 10x6/uL (4.20-6.10); RDW 16.8 % (11.5-14.5); WBC 8.2 10x3/uL (4.8-10.8)
[2019-08-30 05:39] LABS: ALBUMIN 2.6 g/dL (3.4-5.0); ALKALINE PHOSPHATASE 82 U/L (46-116); ALT (SGPT) 50 U/L (10-68); BILIRUBIN - TOTAL 0.66 mg/dL (0.2-1.3); CALC OSMOLALITY 289 mosm/kg (275-300); CALCIUM 8.3 mg/dL (8.5-10.1); CARBON DIOXIDE 34.3 mmol/L (21.0-32.0); CHLORIDE - SERUM 105 mmol/L (98-107); CREATININE - SERUM 1.1 mg/dL (0.6-1.3); GLUCOSE 92 mg/dL (74-106); POTASSIUM - SERUM 4.1 mmol/L (3.5-5.1); PROTEIN - SERUM 5.9 g/dL (6.4-8.2); SODIUM 142 mmol/L (136-145); UREA NITROGEN 32 mg/dL (7-18); eGFR NON AFRICAN AMERICAN 79 mL/min (90-120)
--- NOTE | 2019-08-30 07:20 | NUR ---
RECIEVE REPORT. ALERT AND ORIENTED X4. SITTING UP IN BED RECIEVING UPDRAFT TREATMENT. ALEJANDRA HOES ON FREE FROM WRINKLES AND TOES COVERED. SINUS RYTHM ON TELEMETRY. DENIES ANY NEEDS AT THIS TIME. CONTINUE PLAN OF CARE AND SAFETY PRECAUTIONS.
[2019-08-30 08:08] LABS: IMMUNOGLOBULIN E 75 IU/mL (6-495)
[2019-08-30 13:08] VITALS: BP 145/89
--- NOTE | 2019-08-30 16:20 | NUR ---
ALERT AND ORIENTED X4. UP OOB TAKING SHOWER. LINENS CHANGED. CONTINUE PLAN OF CARE AND SAFETY PRECAUTIONS.
[2019-08-30 17:00] VITALS: BP 131/76
--- NOTE | 2019-08-30 19:15 | NUR ---
RECEIVED REPORT, WILL ASSUME CARE OF PT, DENIES ANY NEEDS AT THIS TIME, BED IS LOW, SRX2, CALL LIGHT IN REACH, FAMILY AT BEDSIDE, WILL CONTINUE PLAN OF CARE
[2019-08-30 20:29] VITALS: BP 138/78
--- NOTE | 2019-08-30 21:30 | NUR ---
PT ONLY WANTED 1MG OF KLONOPIN
[2019-08-31 00:30] VITALS: BP 156/71
--- NOTE | 2019-08-31 01:35 | NUR ---
I have reviewed this patient and I concur with the Shift Assessment completed by the Licensed Practical Nurse today this shift.
[2019-08-31 04:03] VITALS: BP 128/85
[2019-08-31 06:03] LABS: HEMATOCRIT 46.2 % (42.0-54.0); HEMOGLOBIN 14.4 g/dL (13.5-17.5); MCH 27.2 pg (26.0-34.0); MCHC 31.2 g/dL (31.0-37.0); MCV 87.2 fL (80.0-100.0); MEAN PLATELET VOLUME 9.8 fL (7.4-10.4); RBC 5.3 10x6/uL (4.20-6.10); RDW 16.8 % (11.5-14.5)
[2019-08-31 06:11] LABS: WBC 12.7 10x3/uL (4.8-10.8)
[2019-08-31 06:36] LABS: ALBUMIN 2.6 g/dL (3.4-5.0); ALKALINE PHOSPHATASE 91 U/L (46-116); ALT (SGPT) 47 U/L (10-68); BILIRUBIN - TOTAL 1.19 mg/dL (0.2-1.3); CALCIUM 8.6 mg/dL (8.5-10.1); CARBON DIOXIDE 35.3 mmol/L (21.0-32.0); CHLORIDE - SERUM 103 mmol/L (98-107); CREATININE - SERUM 1.1 mg/dL (0.6-1.3); POTASSIUM - SERUM 4.7 mmol/L (3.5-5.1); PROTEIN - SERUM 6.6 g/dL (6.4-8.2); SODIUM 141 mmol/L (136-145); eGFR NON AFRICAN AMERICAN 79 mL/min (90-120)
[2019-08-31 06:37] LABS: CALC OSMOLALITY 286 mosm/kg (275-300); GLUCOSE 162 mg/dL (74-106); UREA NITROGEN 19 mg/dL (7-18)
--- NOTE | 2019-08-31 07:20 | NUR ---
RECIEVE REPORT. ALERT AND ORIENTED X4. LAYING IN BED. DC RT IJ CVL LINE TIP INTACT. PRESSURE HELD PER PROTOCOL. DRESSING APPLIED. DENIES SOB OR PAIN. CONTINUE PLAN OF CARE AND SAFETY PRECAUTIONS.
[2019-08-31 08:17] VITALS: BP 134/87
[2019-08-31] MEDS ORDERED: PROTONIX40 MG PO (11:23)
[2019-08-31] MEDS ORDERED: STERAPRED DS 1010 MG PO (11:23)
[2019-08-31 12:00] VITALS: BP 136/88
--- NOTE | 2019-08-31 12:20 | MORECARE ---
CASE MANAGEMENT DISCHARGE SUMMARY PATIENT: JOAN THEODORE UNIT: [id number] ADM DATE: 08/23/19 AGE: 39 : 78 SEX: M ROOM/BED: D.4122 AUTHOR: QIAN MOTA PHYSICIAN: REFERRING PHYSICIAN: ASHOK STRICKLAND MD DATE OF SERVICE: 08/31/19 Discharge Plan Patient Name: JOAN THEODORE Facility: [facility]:[place] : 1980 Planned Disposition: Home Anticipated Discharge Date: 08/31/19 Discharge Date: Expected LOS: 8 Initial Reviewer: [email or web address] Initial Review Date: 08/27/2019 Generated: 08/31/19 1:20 pm Comments DCP- Discharge Planning Updated by [email or web address]: Binh Murrieta on 08/31/19 11:[address] Patient Name: JOAN THEODORE Encounter No: [id number] : 1980 Primary Insurance: MEDICARE A & B Anticipated DC Date: 08-31-2019 Planned Disposition: Home DCP follow-up note: CM RECEIVED DISCHARGE ORDER, MET WITH PT IN ROOM TO DISCUSS DISCHARGE NEEDS AND PLANNING. CM DISCUSSED AVAILABILITY OF HOME HEALTH, REHAB SERVICES AND MEDICAL EQUIPMENT. PT DENIES DISCHARGE NEEDS. FAMILY TO TRANSPORT HOME AT DISCHARGE. IMPORTANT MESSAGE FROM MEDICARE PROVIDED AND EXPLAINED. ENGINEERING EXECUTIVE NURSE NOTIFIED. MARK Rawls DCP- Discharge Planning Updated by [email or web address]: Colette Bone on 08/29/19 3:[address] Late Entry 08/28/19 CM spoke to patient regarding Inpatient Rehab. ESE signed for [facility] Inpatient Rehab. CM will continue to follow and assist as needed with discharge planning / needs. DCP- Discharge Planning Updated by [id number]: Colette Bone on 08/27/19 3:[address] Patient Name: JOAN THEOODRE Admission Status: ER Accout number: [id number] Admission Date: 08-23-2019 : 1980 Admission Diagnosis: Attending: ASHOK STRICKLAND Current LOS: 4 Anticipated DC Date: Planned Disposition: Home Primary Insurance: MEDICARE A & B Discharge Planning Comments: CM met with patient at bedside after explaining CM role and obtaining verbal consent. Patient lives at home with fianc? where he is independent with his care and plans to return there upon discharge. Patient feels this would be a safe discharge. CM discussed availability / needs of home health and medical equipment. Patient denies any discharge needs at this time. Patient states he will have his family drive him home upon discharge. Patient requested information on living will / advanced directive. CM gave patient pamphlet on advance directive. CM will continue to follow and assist as needed with discharge planning / needs. French Instructor: Colette GARCIA - Discharge Planning Initial Assessment Updated by [email or web address]: Colette Bone on 08/27/19 4:32 pm * Is the patient Alert and Oriented? Yes * How many steps to enter\exit or inside your home? 17 * PCP [facility] [place] * Pharm[facility] * Preadmission Environment Home with Family * ADLs Independent * Equipment None * List name and contact numbers for known caregivers / representatives who currently or will assist patient after discharge: MEGHA GRANT - [phone] BHAVIN HERERRA - [phone] * Verbal permission to speak to the caregivers and representatives has been obtained from the patient. Yes * Community resources currently utilized None * Additional services required to return to the preadmission environment? No * Can the patient safely return to the preadmission environment? Yes * Has this patient been hospitalized within the prior 30 days at any hospital? No Coverage Notice Reviewer: [email or web address] - Colette Mendezr Notice Issued Date-Time: 08/28/2019 12:20 Notice Type: Patient Choice Letter Notice Delivered To: Patient Relationship to Patient: Self Filler And Trimmer Name: Delivery Method: HAND - Hand Delivered Patricia Days: Prior Verbal Notification: Recipient Understood Notice: Yes Recipient Signature: Yes Med Rec Note Co-signed by Attending: Coverage Notice Comment: Reviewer: [id number] - Binh Murrieta Notice Issued Date-Time: 08/31/2019 11:40 Notice Type: IM Discharge Notice Notice Delivered To: Patient Relationship to Patient: Filler And Trimmer Name: Delivery Method: HAND - Hand Delivered Patricia Days: Prior Verbal Notification: Recipient Understood Notice: Yes Recipient Signature: Yes Med Rec Note Co-signed by Attending: Coverage Notice Comment: Last DP export: 08/29/19 4:00 Patient Name: JOAN THEODORE Page [phone] at 1220 All edits/amendments must be made on the electronic document DICTATION DATE: 08/31/191219 PRE ALGEBRA TEACHER: JESSICA 08/31/191219 RPT#: [id number] DC DATE: STATUS: ADM IN [facility] [address] [place] [address] END OF REPORT
[2019-08-31 13:09] LABS: FUNGUS MYCOLOGY CULTURE Preliminary report (())
--- NOTE | 2019-08-31 13:35 | NUR ---
ALERT AND ORIENTED X4. SITTING UP IN BED. ABDOMINAL DRESSING REMOVED. DRAIN INCISION DRESSING CHANGED. INCISION HEALING WELL. DISCHARGE INSTRUCTIONS GIVEN VERBALLY AND WRITTEN. DISCHARGE PAPERS SIGNED ON CHART. ESCORT TO RIDE VIA WHEELCHAIR. REMAINS FREE FROM INJURY.
[2019-09-01 21:06] LABS: MYCOPLASMA PNEUMO IGG 4433 U/mL (0-99)
--- NOTE | 2019-09-03 11:25 | TEE ---
PATIENT:JOAN THEODORE [facility] REC[facility]: [id number] [facility] AGE OF PATIENT: 39 ADMISSION DATE: 08/23/19 SEX: M REFERRING PHYSICIAN: INTERPRETING PHYSICIAN: DENA URIAS MD TRANSESOPHAGEAL ECHOCARDIOGRAM Date: 08/26/19 TAE CHARGE Y INDICATIONS: PERICARDIAL WINDOW PREMEDICATIONS: PATIENT'S RESPONSE PROCEDURE DOPPLER MEASUREMENTS: LVIT 0 LA 0 PA 0 RA 0 LVOT 0 RVOT 0 Asc. Ao 0 AV Gradient Peak 0 AV Mean 0 AV Area 0 MV Gradient Peak 0 MV Mean 0 MV Area 0 INTERPRETATION: PERICARDIAL EFFUSION 1.7 CM TO 4.1 CM Doppler: 2-D: COLOR FLOW DOPPLER NORMAL SALINE STUDY: MISCELLANOUS: DIAGNOSIS: PLAN: Art Specialist:3 Dr. Vázquez Server Developer: 1 JOSE DODD COMMENTS: LIMITED STUDY (2-D ONLY) DATE OF SERVICE: Preop, shows a large pericardial effusion measuring up to a 4.1 cm posteriorly. LV function is mildly reduced. Postop, no pericardial effusion is noted. EF is 55%, normal valve function. TRANSINT:[id number] Voice Confirmation ID: [id number] DOCUMENT ID: [id number] TRANSESOPHAGEAL ECHOCARDIOGRAM REPORT [id number] JOAN THEODORE at 1125 CC: [id number] DICTATION DATE: 08/27/19 1230 AIR SAW OPERATOR: 08/27/19 1439 DIS IN 08/31/19 [place] [id number] [place] [id number]
[2019-09-04 08:09] LABS: VIRAL - RESULT No virus isolated. (())
== END 2019-08-31 13:42 | disposition home or self-care (01) | DRG 270 ==
LOC: D.ER 20:53 → D.CVICU 22:16 → D.M2 22:16 → D.CVICU 08-26 12:07 → D.M2 08-29 16:30
PROVIDERS: Family Medicine; Internal Medicine Pulmonary Disease; Thoracic Surgery (Cardiothoracic Vascular Surgery); ADMIT Internal Medicine Nephrology; ATTEND Internal Medicine Nephrology
PROC: 0W9D0ZZ Drainage of Pericardial Cavity, Open Approach (ICD-10-PCS; principal; 2019-08-26 09:30)
DX: I31.3 Pericardial effusion (noninflammatory) (principal); I50.33 Acute on chronic diastolic (congestive) heart failure; F17.213 Nicotine dependence, cigarettes, with withdrawal; Q24.5 Malformation of coronary vessels; N17.9 Acute kidney failure, unspecified; I42.9 Cardiomyopathy, unspecified; J98.11 Atelectasis; J44.1 Chronic obstructive pulmonary disease with (acute) exacerbation; I11.0 Hypertensive heart disease with heart failure; F41.8 Other specified anxiety disorders; I10 Essential (primary) hypertension; F43.10 Post-traumatic stress disorder, unspecified; G89.29 Other chronic pain; I51.7 Cardiomegaly